=== PATIENT | female | born 1960 | race Caucasian/White ===

== ENCOUNTER → 2017-08-13 13:46 | Outpatient (CLI) | payer OTHER, MEDICAID, SELFPAY ==
--- NOTE | 2017-08-13 | DI.MRI.S_ITS ---
PROCEDURE: MR KNEE LT WO CON INDICATIONS: KNEE PAIN/SWELLING - LEFT TECHNIQUE: Noncontrast sagittal PD fast spin echo and T2 fast spin echo with fat saturation, sagittal 3-D FLASH with fat saturation; coronal T1 spin echo and PD fast spin echo with fat saturation, and axial PD fast spin echo with fat saturation through the knee. COMPARISON: None. FINDINGS: Image quality: Excellent. Menisci: Radial tearing of the free edge of the medial meniscal body and posterior horn is present. Linear high signal intensity traverses the posterior horn medial meniscus, demonstrating superior and inferior articular surface extension, indicating radial tearing. Medial extrusion of the medial meniscus is present. Amorphous high signal intensity within the lateral meniscal body and posterior horn is present, demonstrating inferior articular surface extension, indicating degenerative tearing. Cruciate ligaments: The anterior and posterior cruciate ligaments appear intact. Medial structures: The medial collateral ligament appears intact. The posterior oblique ligament, semimembranosus tendon insertions, oblique popliteal ligament, and meniscocapsular junction appear intact. Visualized portions of the pes anserinus tendons appear normal. No abnormal bursal fluid. Lateral structures: The lateral collateral ligament, long and short heads of the biceps femoris tendon appear intact. The popliteus tendon appears normal; the popliteofibular ligament appears intact. The posterosuperior and anteroinferior popliteomeniscal fascicles appear intact. The arcuate and fabellofibular ligaments appear intact, on either side of the lateral inferior geniculate artery. Iliotibial band appears normal. Anterior structures: The quadriceps and patellar tendons appear intact. Patellar alignment is normal. No femoral trochlear dysplasia or ventral trochlear prominence. No edema in the infrapatellar fat pad. Bones and cartilage: No bone marrow contusions or fractures. There is mild tricompartmental periarticular osteophyte formation. Moderate irregular articular cartilage loss overlies the medial and lateral patellar facets inferiorly. Severe diffuse articular cartilage loss overlies the weightbearing aspects of the medial femoral condyle and medial tibial plateau. Joint space: There is a small knee joint effusion. No Torres's cyst. Normal appearing synovial plicae are incidentally noted. IMPRESSION: 1. Medial and lateral meniscal tear in. 2. Medial and patellofemoral compartment cartilage loss. 3. Small knee joint effusion. Dictated by: aSurav Currie M.D. on 08/13/2017 at 15:09 Approved by: Saurav Currie M.D. on 08/13/2017 at 15:12
== END ==
PROVIDERS: Visit Provider Nurse Practitioner Family
DX: S83.242A Other tear of medial meniscus, current injury, left knee, initial encounter (principal); S83.282A Other tear of lateral meniscus, current injury, left knee, initial encounter; M25.462 Effusion, left knee
CPT/HCPCS: 73721

== ENCOUNTER → 2021-01-17 15:03 | Outpatient (CLI) | payer OTHER, MEDICAID, SELFPAY ==
[2021-01-19 21:33] LABS: Bacteria Urine Many (>30); Culture Indicated Urine Specimen Cultured; RBC Urine 10-30/HPF (0-5/HPF); WBC Urine 30-100/HPF (0-5/HPF)
== END ==
PROVIDERS: PCP Physician Assistant; Referring Provider Physician Assistant; Visit Provider Physician Assistant
DX: N39.0 Urinary tract infection, site not specified (principal)
CPT/HCPCS: 81002; 81015; 87077; 87086; 87186

== ENCOUNTER → 2021-02-02 11:58 | Outpatient (CLI) | payer OTHER, MEDICAID, SELFPAY ==
[2021-02-02 19:39] LABS: Alanine Aminotransferase 78 IU/L (<35); Albumin 4.1 g/dL (3.5-5.0); Albumin Globulin Ratio 1.3 (1.0-2.8); Alkaline Phosphatase 94 U/L (38-126); Aspartate Aminotransferase 68 IU/L (14-36); BUN Creatinine Ratio 9.8 (6-22); Bilirubin Total 0.5 mg/dL (0.2-1.3); Blood Urea Nitrogen 6 mg/dL (7-17); Calcium 9.3 mg/dL (8.4-10.2); Carbon Dioxide 31 mmol/L (22-32); Chloride 102 mmol/L (98-107); Cholesterol 207 mg/dL (140-199); Estimated Glomerular Filt Rate > 60.0 mL/min (>60); Globulin 3.1 g/dL (1.7-4.1); Glucose 102 mg/dL (70-100); HDL Cholesterol 59 mg/dL (40-60); HEMOLYSIS < 15 (0-50); LDL Cholesterol Calculated 118 mg/dL (<100); Potassium 4.4 mmol/L (3.4-5.1); Sodium 140 mmol/L (137-145); Total Protein 7.2 g/dL (6.3-8.2); Triglycerides 148 mg/dL (35-150)
[2021-02-02 19:46] LABS: Add Manual Diff / Slide Review NO; Basophils Absolute Auto 100 /uL (0-100); Basophils Percent Auto 0.9 % (0-2); Eosinophils Absolute Auto 200 /uL (0-450); Eosinophils Percent Auto 3.7 % (2-4); Hematocrit 40.4 % (36-46); Hemoglobin 13.5 g/dL (12.0-16.0); Lymphocytes Absolute Auto 2300 /uL (1100-4500); Lymphocytes Percent Auto 37.3 % (25-40); Mean Corpuscular HGB Conc 33.3 % (30-36); Mean Corpuscular Hemoglobin 29.8 PG (26-34); Mean Corpuscular Volume 89.2 fL (80-100); Monocytes Absolute Auto 500 /uL (0-900); Monocytes Percent Auto 8.7 % (3-14); Neutrophils Absolute Auto 3000 /uL (1500-7000); Neutrophils Percent Auto 49.4 % (50-75); Platelet Count 259 X10^3/uL (150-400); Red Blood Cell Count 4.53 X10^6/uL (4.0-5.2); Red Cell Distribution Width 14.4 % (11.6-14.8)
[2021-02-02 19:51] LABS: Hemoglobin A1C% w Est Avg Glu 5.9 % (4.0-6.0)
== END ==
PROVIDERS: PCP Physician Assistant; Visit Provider Physician Assistant
DX: R74.01 Elevation of levels of liver transaminase levels (principal)
CPT/HCPCS: 80053; 80061; 81002; 83036; 85025

== ENCOUNTER → 2021-12-14 11:18 | Outpatient (CLI) | payer OTHER, MEDICAID, SELFPAY ==
[2021-12-15 04:43] LABS: Alanine Aminotransferase 65 IU/L (<35); Albumin 3.9 g/dL (3.5-5.0); Albumin Globulin Ratio 1.3 (1.0-2.8); Alkaline Phosphatase 87 U/L (38-126); Aspartate Aminotransferase 47 IU/L (14-36); BUN Creatinine Ratio 17.5 (6-22); Bilirubin Total 0.4 mg/dL (0.2-1.3); Blood Urea Nitrogen 11 mg/dL (7-17); Carbon Dioxide 31 mmol/L (22-32); Chloride 102 mmol/L (98-107); Estimated Glomerular Filt Rate > 60 mL/min (>60); Globulin 3.1 g/dL (1.7-4.1); Glucose 107 mg/dL (70-100); HEMOLYSIS < 15 (0-50); Potassium 4.2 mmol/L (3.4-5.1); Sodium 139 mmol/L (137-145)
[2021-12-15 05:12] LABS: TSH w/ Reflex to FT4 2.12 uIU/mL (0.47-4.68)
[2021-12-20 08:57] LABS: Candida species Negative; Trichomoas vaginalis Negative
== END ==
PROVIDERS: PCP Physician Assistant; Visit Provider Physician Assistant
DX: R63.5 Abnormal weight gain (principal); R74.01 Elevation of levels of liver transaminase levels; B97.7 Papillomavirus as the cause of diseases classified elsewhere; N89.8 Other specified noninflammatory disorders of vagina; Z01.419 Encounter for gynecological examination (general) (routine) without abnormal findings
CPT/HCPCS: 80053; 84443; 87480; 87510; 87660

== ENCOUNTER → 2022-02-07 14:41 | Outpatient (CLI) | payer OTHER, MEDICAID, SELFPAY ==
[2022-02-09 14:44] LABS: Candida species Negative (Negative); Gardnerella vaginalis Negative (Negative); Trichomoas vaginalis Negative (Negative)
== END ==
PROVIDERS: PCP Physician Assistant; Visit Provider Physician Assistant
DX: R82.90 Unspecified abnormal findings in urine (principal)
CPT/HCPCS: 81002; 87480; 87510; 87660

== ENCOUNTER → 2022-02-08 12:32 | Outpatient (CLI) | payer OTHER, MEDICAID, SELFPAY ==
--- NOTE | 2022-02-08 12:33 | DI.MG.S_ITS ---
BILATERAL DIGITAL SCREENING MAMMOGRAM 3D/2D WITH CAD: 02/08/2022 CLINICAL: Routine screening. No prior exams were available for comparison. There are scattered areas of fibroglandular density in both breasts (category b / 25%-50% glandular tissue). Current study was also evaluated with a Computer Aided Detection (CAD) system. No significant masses, calcifications, or other findings are seen in either breast. IMPRESSION: NEGATIVE There is no mammographic evidence of malignancy. A 1 year screening mammogram is recommended. Based on the Tyrer Cuzick model (a risk assessment model) the patient's lifetime risk is 4.9% and her 10 year risk is 1.9%. According to the ACR, ACS, and NCCN guidelines, an annual breast MRI exam along with mammogram is recommended if the patient's lifetime risk is 20% or greater. This exam was interpreted at Station ID: [id number]. NOTE: For mammograms, a report in lay terms will be sent to the patient. Approximately 15% of breast malignancies will not be visualized mammographically. In the management of a palpable breast mass, a negative mammogram must not discourage biopsy of a clinically suspicious lesion. Electronically Signed By: Zach liao/juan j:02/08/2022 14:44:46 letter sent: Normal Exam ACR BI-RADS Category 1: Negative [id number]
== END ==
PROVIDERS: PCP Physician Assistant; Referring Provider Physician Assistant; Visit Provider Physician Assistant
DX: Z12.31 Encounter for screening mammogram for malignant neoplasm of breast (principal)
CPT/HCPCS: 77063; 77067

== ENCOUNTER 2022-03-22 11:42 | Inpatient (IN) | payer OTHER, MEDICAID, SELFPAY ==
[2022-03-22] VITALS (24 sets, daily range): BP systolic 114–176; BP diastolic 55–96; PULSE 96–112; RESP 19–30; TEMP 35.8–36.6; O2SAT 90–96; BMI 46.5
--- NOTE | 2022-03-22 11:59 | ED_ITS ---
HPI - SOB/Dyspnea General Chief Complaint: Shortness of Breath/Dyspnea Stated Complaint: Pneumonia Time Seen by Provider: 03/22/22 11:43 Source: patient, EMS (airlift) and other (Dr. Jeter) Mode of arrival: EMS (airlift) Limitations: no limitations History of Present Illness HPI Narrative: This is a 61-year-old female with history of asthma on albuterol inhaler patient did recently restart her fluticasone inhaler. Patient states she is felt ill for about 11 days, she started with cough, chest congestion, denies any fevers, no nasal congestion. She states productive sputum that has been thin, clear yellow in coloration, she is had sort of an epigastric chest discomfort that started overnight as well as some left-sided muscle aches that she describes being in her left arm and neck. Patient states she did not really have myalgias elsewhere. She feels short of breath. Patient denies any nausea or vomiting. She denies any diarrhea or constipation. No black or bloody stools. No dysuria urgency or frequency. No new swelling in her extremities. She states she is been drinking plenty of fluids. She denies other medical history, she states her inhalers are her only medications and she just restarted the fluticasone. She her granddaughter has had a recent upper respiratory infection at the same time. She denies tobacco use, no alcohol, no illicit. She lives on [facility] and saw Dr. Jeter in the office today had a chest x-ray and was sent over via airlift for tachycardia, tachypnea and O2 sat at the 90-91% range. She did have a DuoNeb she states it was not very helpful. She has not had any other interventions prior to arrival. Patient was transported via ER lift, they noted slight tachycardia 100-107 range, O2 was 90-91% on room air and was placed on 2 L brought her to 96%. Related Data Previous Rx's Medication Instructions Recorded albuterol sulfate 90 mcg/actuation 1 inh inhalation Q4-6H PRN 12/05/21 breath activated powder inhaler shortness of breath or wheezing #1 ea fluticasone propionate 110 2 puff inhalation BID #12 grams 12/05/21 mcg/actuation HFA aerosol inhaler (Flovent HFA) Allergies Allergy/AdvReac Type Severity Reaction Status Date / Time No Known Drug Allergies Allergy Verified 02/07/22 08:18 Review of Systems Review of Systems ROS Unobtainable: All systems reviewed & are unremarkable except as noted in HPI and below Patient History Medical History Abnormal Pap smear of cervix Acute meniscal tear of left knee Acute pain of left knee Breast cancer screening Candidal skin infection Cataracts, bilateral (~2011) MORIS I (cervical intraepithelial neoplasia I) MORIS II (cervical intraepithelial neoplasia II) Dysplasia of cervix, low grade (MORIS 1) Elevated ALT measurement Encounter for surveillance of abnormal nevi H/O vaginal delivery Hearing loss Pain and swelling of left knee Pap smear of cervix with ASCUS, cannot exclude HGSIL Rash of face Rosacea, unspecified Screening for cervical cancer Screening, lipid Skin cancer screening Tinnitus of left ear Urinary frequency Vaginal discharge Weight gain Well woman exam Surgical History Anesthesia History of cholecystectomy (~2009) Social History household members: family Smoking Status: Never smoker alcohol intake: never Smoking Status: Never smoker Exam Narrative Exam Narrative: GEN: well nourished, well appearing female, alert and oriented x 3, patient appears to be in mild distress. Patient is satting 92% on room air after being removed from airlifts oxygen. HEENT: Atraumatic, pupils are equal round reactive to light, extraocular movements are intact, nares are clear. HEART: Slightly tachycardic 100-105 range, Regular rate and rhythm without murmur, clicks, rubs. pulses are equal in upper and lower extremities, no JVD. No swelling bilateral lower extremities. LUNGS:Lungs have mild wheeze in the right lower lobe, no rales, no crackles, patient has recti in upper and lower bilaterally, slight tachypnea speaks in full sentences. No accessory muscle use. chest moves symmetrically ABD:bowel sounds normal, soft, non-tender, no guarding, rebound, rigidity, no masses noted, no hepatosplenomegaly :No CVA tenderness MSCL: Non-tender, no muscle atrophy, muscles strength 5/5 upper and lower extremities, full range of motion, normal gait NEURO:CN 2-12 intact, sensation normal SKIN: No rash, erythema or other skin changes. Initial Vital Signs Initial Vital Signs: Vital Signs Pulse Rate 107 H 03/22/22 11:50 Pulse Oximetry 92 03/22/22 11:50 Oxygen Delivery Method 03/22/22 11:50 Scores CURB-65 Confusion: No BUN >19mg/dL (>7mmol/L): No Respiratory rate greater or equal to 30: Yes SBP <90mmHg or DBP less or equal to 60mmHg: No Age 65 or Older: No CURB-65 Total: 1 Score 0-1 Outpatient care, Score 2 Inpt vs. Obs, Score 3 or over Inpt admit with ICU for score of 4-5 Course Orders Ordered: Acetaminophen (Acetaminophen 325 Mg Tablet) 650 mg PO Q6H PRN PRN Reason: Fever/Mild Pain (1-3) Last Admin: 03/23/22 17:37 Dose: 650 mg Documented By: Admin: 03/23/22 09:31 Dose: 650 mg Documented By: Admin: 03/22/22 20:12 Dose: 650 mg Documented By: LAKEISHA Albuterol (Albuterol 2.5 Mg/3 Ml Neb (Adult)) 2.5 mg INH [id number] PRN PRN Reason: Wheezing Budesonide (Budesonide 0.5 Mg/2 Ml Neb) 0.5 mg INH RTBID GRACE Last Admin: 03/24/22 08:25 Dose: 0.5 mg Documented By: Admin: 03/23/22 21:28 Dose: 0.5 mg Documented By: Admin: 03/23/22 09:53 Dose: 0.5 mg Documented By: CHONG Cefdinir (Cefdinir 300 Mg Capsule) 300 mg PO BID [facility] Stop: 03/27/22 09:01 Last Admin: 03/24/22 09:13 Dose: 300 mg Documented By: Admin: 03/23/22 20:51 Dose: 300 mg Documented By: Admin: 03/23/22 09:31 Dose: 300 mg Documented By: YOLA Cyclobenzaprine HCl (Cyclobenzaprine 10 Mg Tablet) 10 mg PO TID PRN PRN Reason: muscle spasm Last Admin: 03/24/22 16:55 Dose: 10 mg Documented By: KERA Dextrose (Dextrose 50 % In Water 25 Gm/50 Ml Syringe) 25 gm IV PRN PRN PRN Reason: Hypoglycemia Doxycycline Hyclate (Doxycycline Hyclate 100 Mg Tablet) 100 mg PO BID [facility] Stop: 03/27/22 09:01 Last Admin: 03/24/22 09:08 Dose: 100 mg Documented By: Admin: 03/23/22 20:51 Dose: 100 mg Documented By: Admin: 03/23/22 09:31 Dose: 100 mg Documented By: YOLA Enoxaparin Sodium (Enoxaparin 40 Mg/0.4 Ml Syringe) 40 mg SUBCUT BID [facility] Last Admin: 03/24/22 09:07 Dose: 40 mg Documented By: Admin: 03/23/22 20:50 Dose: 40 mg Documented By: LAKEISHA Guaifenesin (Guaifenesin Er 600 Mg Tab) 1,200 mg PO BID [facility] Last Admin: 03/24/22 09:08 Dose: 1,200 mg Documented By: Admin: 03/23/22 20:51 Dose: 1,200 mg Documented By: Admin: 03/23/22 13:24 Dose: 1,200 mg Documented By: YOLA Insulin Human Lispro (Insulin Lispro 100 Unit/Ml 3ml Vial) 0 unit SUBCUT [facility]; Protocol Last Admin: 03/24/22 16:50 Dose: 2 unit Documented By: KERA Co-signed By: NAREN Admin: 03/24/22 12:43 Dose: 2 unit Documented By: KERA Co-signed By: DESHAWN Admin: 03/24/22 09:02 Dose: 2 unit Documented By: KERA Co-signed By: REJI Admin: 03/23/22 22:17 Dose: 2 unit Documented By: LAKEISHA Co-signed By: SOLIS Admin: 03/23/22 17:32 Dose: 3 unit Documented By: YOLA Co-signed By: BRISEYDA Admin: 03/23/22 13:31 Dose: 3 unit Documented By: YOLA Co-signed By: HENRI Lidocaine (Lidocaine Patch 1 Each Adh..Patch) 1 each TOP DAILY [facility] Last Admin: 03/23/22 20:51 Dose: 1 each Documented By: Admin: 03/23/22 13:23 Dose: 1 each Documented By: YOLA Lidocaine (Remove Lidocaine Patch) 1 each TOP BEDTIME [facility] Last Admin: 12/30/22 22:21 Dose: Not Given Documented By: LAKEISHA Lidocaine (Lidocaine Patch 1 Each Adh..Patch) 1 each TOP DAILY [facility] Last Admin: 03/24/22 12:15 Dose: Not Given Documented By: KERA Magnesium Hydroxide (Magnesium Hydroxide 30 Ml Udc) 30 ml PO DAILY PRN PRN Reason: Constipation Naloxone HCl (Naloxone 0.4 Mg/Ml Vial) 0.2 mg IV Q2MIN PRN PRN Reason: Opiate Reversal Oseltamivir Phosphate (Oseltamivir 75 Mg Capsule) 75 mg PO BID [facility] Stop: 03/27/22 09:01 Last Admin: 03/24/22 09:14 Dose: 75 mg Documented By: Admin: 03/23/22 20:51 Dose: 75 mg Documented By: Admin: 03/23/22 09:31 Dose: 75 mg Documented By: Admin: 03/22/22 20:12 Dose: 75 mg Documented By: LAKEISHA Oxycodone HCl (Oxycodone Ir 5 Mg Tablet) 5 mg PO Q4HR PRN PRN Reason: Pain, Moderate (4-6) Last Admin: 03/23/22 20:51 Dose: 5 mg Documented By: LAKEISHA Prednisone (Prednisone 20 Mg Tablet) 40 mg PO DAILY [facility] Sodium Chloride (Sodium Chloride 0.9% Flush) 10 ml IV PRN PRN PRN Reason: Flush Sodium Chloride (Sodium Chloride 0.9% Flush) 10 ml IV BID [facility] Last Admin: 03/24/22 09:14 Dose: 10 ml Documented By: Admin: 03/23/22 20:52 Dose: 10 ml Documented By: Admin: 03/23/22 09:35 Dose: 10 ml Documented By: Admin: 03/22/22 20:19 Dose: 10 ml Documented By: LAKEISHA Discontinued Medications Albuterol (Albuterol 2.5 Mg/3 Ml Neb (Adult)) 2.5 mg INH NOW ONE Stop: 03/22/22 13:54 Last Admin: 03/22/22 14:03 Dose: 2.5 mg Documented By: AMARILIS Albuterol (Albuterol 2.5 Mg/3 Ml Neb (Adult)) 2.5 mg INH [id number] [facility] Doxycycline Hyclate (Doxycycline Hyclate 100 Mg Tablet) 100 mg PO NOW ONE Stop: 03/22/22 16:15 Last Admin: 03/22/22 16:43 Dose: 100 mg Documented By: HO Enoxaparin Sodium (Enoxaparin 40 Mg/0.4 Ml Syringe) 40 mg SUBCUT DAILY [facility] Last Admin: 03/23/22 09:34 Dose: 40 mg Documented By: YOLA Furosemide (Furosemide 40 Mg/4 Ml Vial) 40 mg IV NOW ONE Stop: 03/22/22 17:38 Last Admin: 03/22/22 18:50 Dose: Not Given Documented By: MADELINE Ceftriaxone Sodium 2,000 mg/ (Sodium Chloride) 100 mls @ 200 mls/hr IV NOW ONE Stop: 03/22/22 12:10 Last Infusion: 03/22/22 16:05 Dose: 0 mls/hr Documented By: Admin: 03/22/22 15:15 Dose: 200 mls/hr Documented By: AT Sodium Chloride (Normal Saline 0.9%) 1,000 mls @ 1,000 mls/hr IV BOLUS ONE Stop: 03/22/22 16:08 Last Infusion: 03/22/22 16:38 Dose: 0 mls/hr Documented By: Admin: 03/22/22 15:16 Dose: 1,000 mls/hr Documented By: AT Methylprednisolone (Methylprednisolone 125 Mg/2 Ml Vial) 125 mg IV NOW ONE Stop: 03/22/22 12:05 Last Admin: 03/22/22 15:15 Dose: 125 mg Documented By: AT Methylprednisolone (Methylprednisolone 40 Mg/Ml Vial) 40 mg IV Q8HR [facility] Last Admin: 03/24/22 07:47 Dose: 40 mg Documented By: Admin: 03/23/22 22:17 Dose: 40 mg Documented By: Admin: 03/23/22 13:24 Dose: 40 mg Documented By: YOLA Methylprednisolone (Methylprednisolone 40 Mg/Ml Vial) 40 mg IV Q8H [facility] Last Admin: 03/24/22 16:30 Dose: 40 mg Documented By: KERA Morphine Sulfate (Morphine 4 Mg/Ml Inj) 4 mg IV NOW ONE Stop: 03/22/22 16:15 Last Admin: 03/22/22 16:43 Dose: 4 mg Documented By: HO Non-Formulary Medication (Fluticasone Propionate [Flovent Hfa]) 2 puff INHALATION BID [facility] Last Admin: 03/23/22 07:00 Dose: Not Given Documented By: YOLA Pantoprazole Sodium (Pantoprazole 40 Mg Packet) 20 mg PO DAILY@0700 [facility] Last Admin: 03/23/22 07:00 Dose: Not Given Documented By: YOLA Pantoprazole Sodium (Pantoprazole Dr 20 Mg Tablet) 20 mg PO DAILY@0700 [facility] Last Admin: 03/24/22 07:47 Dose: 20 mg Documented By: Admin: 03/23/22 09:45 Dose: 20 mg Documented By: YOLA Prednisone (Prednisone 20 Mg Tablet) 40 mg PO DAILY [facility] Prednisone (Prednisone 20 Mg Tablet) 60 mg PO DAILY [facility] Last Admin: 03/23/22 09:31 Dose: 60 mg Documented By: Admin: 03/22/22 23:00 Dose: 60 mg Documented By: LAKEISHA Prednisone (Prednisone 20 Mg Tablet) 60 mg PO DAILY [facility] Consultations Consultation #1: Dr. Nieves, would be willing to keep for observation. Patient continues to be slightly tachycardic slightly tachypneic, still slight pursed lip breathing she is been maintaining her O2 sats but does have what appears to be influenza positive, likely pneumonia although possibly could have a masslike consolidation with enlarged lymph nodes. He accepts for observation patient has received Rocephin, doxycycline, fluids, Solu-Medrol he does ask that we add Tamiflu accepts patient. Time: 17:24 Vital Signs Vital signs: Vital Signs - 8 hr 03/22/22 11:55 03/22/22 11:50 03/22/22 11:52 Temperature 97.8 F Pulse Rate 105 H 107 H 107 H Respiratory Rate 20 Blood Pressure 170/90 H Pulse Oximetry 92 92 92 Oxygen Delivery Method Room Air Room Air Room Air 03/22/22 11:52 03/22/22 12:00 03/22/22 12:24 Temperature Pulse Rate 104 H 103 H Respiratory Rate 20 Blood Pressure 170/90 H Pulse Oximetry 93 92 Oxygen Delivery Method Room Air Room Air 03/22/22 12:24 03/22/22 12:30 03/22/22 13:47 Temperature Pulse Rate 102 H 112 H Respiratory Rate 22 30 H Blood Pressure 123/78 Pulse Oximetry 93 93 Oxygen Delivery Method Room Air 03/22/22 13:00 03/22/22 13:27 03/22/22 13:27 Temperature Pulse Rate 101 H 101 H Respiratory Rate 20 20 Blood Pressure 144/81 H Pulse Oximetry 92 94 Oxygen Delivery Method Room Air Room Air 03/22/22 13:30 03/22/22 13:30 03/22/22 13:45 Temperature Pulse Rate 103 H 107 H Respiratory Rate 22 28 H Blood Pressure 147/81 H Pulse Oximetry 94 92 Oxygen Delivery Method Room Air Room Air 03/22/22 13:45 03/22/22 14:03 03/22/22 14:00 Temperature Pulse Rate 104 H Respiratory Rate 26 H Blood Pressure 176/78 H 169/75 H Pulse Oximetry 95 Oxygen Delivery Method 03/22/22 14:00 03/22/22 14:30 03/22/22 14:31 Temperature Pulse Rate 104 H 103 H Respiratory Rate 22 24 Blood Pressure 126/74 Pulse Oximetry 96 92 Oxygen Delivery Method Room Air Room Air 03/22/22 14:31 03/22/22 15:13 03/22/22 15:30 Temperature Pulse Rate 102 H 97 H 105 H Respiratory Rate 26 H Blood Pressure Pulse Oximetry 93 93 95 Oxygen Delivery Method Room Air Room Air Room Air 03/22/22 15:35 03/22/22 15:35 03/22/22 16:00 Temperature Pulse Rate 109 H Respiratory Rate Blood Pressure 126/66 140/73 Pulse Oximetry 93 Oxygen Delivery Method Room Air 03/22/22 16:00 Temperature Pulse Rate 102 H Respiratory Rate 22 Blood Pressure Pulse Oximetry 94 Oxygen Delivery Method Room Air MDM - SOB/Dyspnea Lab Data Result diagrams: 03/24/22 04:40 03/24/22 04:40 Labs: Lab Results 03/22/22 03/22/22 03/22/22 Range/Units 13:08 13:08 13:08 WBC 13.8 H (4.5-11.0) X10^3/uL RBC 4.39 (4.0-5.2) X10^6/uL Hgb 12.9 (12.0-16.0) g/dL Hct 38.5 (36-46) % MCV 87.6 (80-100) fL MCH 29.4 (26-34) PG MCHC 33.6 (30-36) % RDW 14.6 (11.6-14.8) % Plt Count 206 (150-400) X10^3/uL Neut % (Auto) 82.9 H (50-75) % Lymph % (Auto) 9.4 L (25-40) % [place] % (Auto) 7.1 (3-14) % Eos % (Auto) 0.1 L (2-4) % Baso % (Auto) 0.5 (0-2) % Neut # (Auto) 25225 H (6452-8452) /uL Lymph # (Auto) 1300 (7499-8044) /uL [place] # (Auto) 1000 H (0-900) /uL Eos # (Auto) 0 (0-450) /uL Baso # (Auto) 100 (0-100) /uL D-Dimer (<500) ng/ml Sodium 136 L (137-145) mmol/L Potassium 3.9 (3.4-5.1) mmol/L Chloride 99 (98-107) mmol/L Carbon Dioxide 28 (22-32) mmol/L BUN 6 L (7-17) mg/dL Creatinine 0.57 (0.52-1.04) mg/dL Estimated GFR > 60 (>60) mL/min BUN/Creatinine Ratio 10.5 (6-22) Glucose 143 H (70-100) mg/dL Lactate (0.7-2.1) mmol/L Calcium 8.3 L (8.4-10.2) mg/dL Total Bilirubin 0.8 (0.2-1.3) mg/dL AST 45 H (14-36) IU/L ALT 71 H (<35) IU/L Alkaline Phosphatase 108 (38-126) U/L Total Creatine Kinase 84 (30-135) U/L CK-MB (CK-2) TNP CK-MB (CK-2) Rel Index TNP Troponin I < 0.012 (0.01-0.034) ng/mL NT-Pro-B Natriuret Pep 59 (<125) pg/mL Total Protein 7.7 (6.3-8.2) g/dL Albumin 4.1 (3.5-5.0) g/dL Globulin 3.6 (1.7-4.1) g/dL Albumin/Globulin Ratio 1.1 (1.0-2.8) Lipase 63 (23-300) U/L SARS-CoV-2 (PCR) (Negative) Influenza A (RT-PCR) (NEGATIVE) Influenza B (RT-PCR) (NEGATIVE) RSV (PCR) (Negative) 03/22/22 03/22/22 03/22/22 Range/Units 13:08 13:08 13:44 WBC (4.5-11.0) X10^3/uL RBC (4.0-5.2) X10^6/uL Hgb (12.0-16.0) g/dL Hct (36-46) % MCV (80-100) fL MCH (26-34) PG MCHC (30-36) % RDW (11.6-14.8) % Plt Count (150-400) X10^3/uL Neut % (Auto) (50-75) % Lymph % (Auto) (25-40) % [place] % (Auto) (3-14) % Eos % (Auto) (2-4) % Baso % (Auto) (0-2) % Neut # (Auto) (4817-6668) /uL Lymph # (Auto) (0278-2987) /uL [place] # (Auto) (0-900) /uL Eos # (Auto) (0-450) /uL Baso # (Auto) (0-100) /uL D-Dimer 1132 H (<500) ng/ml Sodium (137-145) mmol/L Potassium (3.4-5.1) mmol/L Chloride (98-107) mmol/L Carbon Dioxide (22-32) mmol/L BUN (7-17) mg/dL Creatinine (0.52-1.04) mg/dL Estimated GFR (>60) mL/min BUN/Creatinine Ratio (6-22) Glucose (70-100) mg/dL Lactate 1.6 (0.7-2.1) mmol/L Calcium (8.4-10.2) mg/dL Total Bilirubin (0.2-1.3) mg/dL AST (14-36) IU/L ALT (<35) IU/L Alkaline Phosphatase (38-126) U/L Total Creatine Kinase (30-135) U/L CK-MB (CK-2) CK-MB (CK-2) Rel Index Troponin I (0.01-0.034) ng/mL NT-Pro-B Natriuret Pep (<125) pg/mL Total Protein (6.3-8.2) g/dL Albumin (3.5-5.0) g/dL Globulin (1.7-4.1) g/dL Albumin/Globulin Ratio (1.0-2.8) Lipase (23-300) U/L SARS-CoV-2 (PCR) Negative (Negative) Influenza A (RT-PCR) Flu a positive H (NEGATIVE) Influenza B (RT-PCR) Flu b negative (NEGATIVE) RSV (PCR) Negative (Negative) Imaging Data Chest x-ray: Radiologist's Impression: [place] [address] XRay Report Signed Patient: Donna Alex MR#: [id number] : 1960 Acct:[id number] Age/Sex: 61 / F Date of Service: 03/22/22 Loc: [facility] Accession Number: [id number] ?? Procedure: XR chest 2V Ordering Provider: Sen Jeter MD PROCEDURE:? XR CHEST 2V ? INDICATIONS:? SOB cough ? TECHNIQUE:? 2 views of the chest were acquired.? ? COMPARISON:? None. ? FINDINGS:? ? Surgical changes and devices:? None.? ? Lungs and pleura:? Left lower lobe airspace opacities.? Right lung appears clear.? No pleural effusions or pneumothorax.? ? Mediastinum:? Mediastinal contours are normal.? Heart size is normal.? ? Bones and chest wall:? No suspicious bony abnormalities.? Soft tissues appear unremarkable.? ? IMPRESSION:? Left lower lobe airspace disease/pneumonia. ? Recommend follow up chest radiograph 4-6 weeks after treatment to document resol ution of findings and/or return to baseline examination. ? ? ? Dictated by: Zach Candelario M.D. on 03/22/2022 at 13:07 ? ? Approved by: Zach Candelario M.D. on 03/22/2022 at 13:08?? CT scan - chest: Radiologist's Impression: Close Chest CTA (Signed) Bill Friedman - 03/22/22 Launch?Image [address] [address] [address] Scan Report Signed Patient: Donna Alex MR#: [id number] : 1960 Acct:[id number] Age/Sex: 61 / F Date of Service: 03/22/22 Loc: ED Accession Number: [id number] ?? Procedure: CT angio chest PE protocol Ordering Provider: Rachana Chavez D.O. PROCEDURE:? CT ANGIO CHEST PE PROTOCOL ? INDICATIONS:? sob, ? TECHNIQUE:? After the administration of intravenous contrast, 2 mm thick sections acquired from the pulmonary apices to the posterior costophrenic angles.? 3-dimensional maximum intensity projection (MIP) coronal and sagittal reformats were then acquired through the thorax.? For radiation dose reduction, the following was used:? automated exposure control, adjustment of mA and/or kV according to patient size.? ? COMPARISON:? None. ? FINDINGS:? Image quality:? Excellent.? ? Pulmonary arteries:? Pulmonary arteries are normal in size, and demonstrate no intraluminal filling defects to suggest central pulmonary embolism.? ? Lungs and pleura:? There is either a masslike infiltrate or a mass in the left lower lobe on image 146/7 measuring 2.7 x 3.0 cm.? More inferiorly in the right lobe there are 2 other focal areas which may potentially represent mass or masslike infiltrate.? Reference image 175/7.? 1 of these areas measures 2.7 cm and the other measures 1.6 cm.? This may all potentially represent pneumonia.? Malignancy is not excluded. .? No pleural effusions or pneumothorax.? Central and peripheral airways are patent.? ? Mediastinum:? Heart size is normal, without pericardial effusion.? There is a 2.2 x 2.3 cm left hilar lymph node on image 67/6.? There is shotty prevascular adenopathy image 47/6.? There is a prominent subcarinal lymph node image 65/6 which measures approximately 3.1 x 1.6 cm.? Thoracic aorta is normal in caliber and enhancement.? Esophagus is normal in caliber, without hiatal hernia.? ? Bones and chest wall:? No suspicious bony lesions.? Ribs and thoracic spine appear intact throughout.? Thyroid gland is grossly unremarkable.? No axillary or supraclavicular adenopathy.? ? Abdomen:? Visualized upper abdominal solid organs appear normal in the early arterial phase of enhancement.? ? IMPRESSION:? ? 1. No evidence acute pulmonary emboli. ? 2. There is mediastinal adenopathy which is of uncertain significance, possibly reactive or possibly malignant in nature.? Findings include a 2.3 x 2.2 cm left hilar lymph node. ? 3. There is a process in the left lower lobe which may simply represent pneumonia where areas of consolidation have a masslike appearance, or may potentially represent malignancy. ? Comment:? Recommend repeat CT chest with contrast in 2-3 months, after treatment, to see whether not the masslike densities in the left lower lobe resolved.? ? ? Dictated by: Bill Friedman M.D. on 03/22/2022 at 15:10 ? ? Approved by: Bill Friedman M.D. on 03/22/2022 at 15:36?? ECG Data Attestation: I personally reviewed and interpreted this ECG as follows: Interpretation: Sinus tachycardia rate of 106 ND 160 QRS 84 and QTC 438. No acute ST elevation or depression noted. MDM Narrative Medical decision making narrative: This is a 61-year-old female with history of asthma, who test influenza positive, patient is slightly tachypneic, tachycardic with O2 92-90% on room air. Patient does appear to have pneumonia with possible underlying mass but more suspect bacterial pneumonia, curb 65 score does 1 but based on patient's findings spoke with hospitalist who accepts for observation. Discussed with patient she is open to this. She has been covered with antibiotics, Tamiflu was added on despite being 10-11 days within symptoms. Discharge Plan Departure Patient Disposition: Admitted as Observation Clinical Impression: Influenza A, Pneumonia Admit Date/Time: 03/22/22 17:22 Admit Provider: Jaswinder Nieves
[2022-03-22 13:32] LABS: Add Manual Diff / Slide Review NO; Basophils Absolute Auto 100 /uL (0-100); Basophils Percent Auto 0.5 % (0-2); Eosinophils Absolute Auto 0 /uL (0-450); Eosinophils Percent Auto 0.1 % (2-4); Hematocrit 38.5 % (36-46); Hemoglobin 12.9 g/dL (12.0-16.0); Lymphocytes Absolute Auto 1300 /uL (1100-4500); Lymphocytes Percent Auto 9.4 % (25-40); Mean Corpuscular HGB Conc 33.6 % (30-36); Mean Corpuscular Hemoglobin 29.4 PG (26-34); Mean Corpuscular Volume 87.6 fL (80-100); Monocytes Absolute Auto 1000 /uL (0-900); Monocytes Percent Auto 7.1 % (3-14); Neutrophils Absolute Auto 11400 /uL (1500-7000); Neutrophils Percent Auto 82.9 % (50-75); Platelet Count 206 X10^3/uL (150-400); Red Blood Cell Count 4.39 X10^6/uL (4.0-5.2); Red Cell Distribution Width 14.6 % (11.6-14.8); White Blood Cell Count 13.8 X10^3/uL (4.5-11.0)
[2022-03-22 13:37] LABS: D Dimer 1132 ng/ml (<500)
[2022-03-22 13:41] LABS: Lactate (Lactic Acid) 1.6 mmol/L (0.7-2.1)
[2022-03-22 13:44] LABS: Alanine Aminotransferase 71 IU/L (<35); Albumin 4.1 g/dL (3.5-5.0); Albumin Globulin Ratio 1.1 (1.0-2.8); Alkaline Phosphatase 108 U/L (38-126); Aspartate Aminotransferase 45 IU/L (14-36); BUN Creatinine Ratio 10.5 (6-22); Bilirubin Total 0.8 mg/dL (0.2-1.3); Blood Urea Nitrogen 6 mg/dL (7-17); Calcium 8.3 mg/dL (8.4-10.2); Carbon Dioxide 28 mmol/L (22-32); Chloride 99 mmol/L (98-107); Creatine Kinase 84 U/L (30-135); Estimated Glomerular Filt Rate > 60 mL/min (>60); Globulin 3.6 g/dL (1.7-4.1); Glucose 143 mg/dL (70-100); HEMOLYSIS < 15 (0-50); Lipase 63 U/L (23-300); Potassium 3.9 mmol/L (3.4-5.1); Sodium 136 mmol/L (137-145); Total Protein 7.7 g/dL (6.3-8.2)
[2022-03-22 13:51] LABS: NT-proBNP (BNP-Adult 18+) 59 pg/mL (<125)
--- NOTE | 2022-03-22 13:52 | DI.CT.S_ITS ---
PROCEDURE: CT ANGIO CHEST PE PROTOCOL INDICATIONS: sob, TECHNIQUE: After the administration of intravenous contrast, 2 mm thick sections acquired from the pulmonary apices to the posterior costophrenic angles. 3-dimensional maximum intensity projection (MIP) coronal and sagittal reformats were then acquired through the thorax. For radiation dose reduction, the following was used: automated exposure control, adjustment of mA and/or kV according to patient size. COMPARISON: None. FINDINGS: Image quality: Excellent. Pulmonary arteries: Pulmonary arteries are normal in size, and demonstrate no intraluminal filling defects to suggest central pulmonary embolism. Lungs and pleura: There is either a masslike infiltrate or a mass in the left lower lobe on image 146/7 measuring 2.7 x 3.0 cm. More inferiorly in the right lobe there are 2 other focal areas which may potentially represent mass or masslike infiltrate. Reference image 175/7. 1 of these areas measures 2.7 cm and the other measures 1.6 cm. This may all potentially represent pneumonia. Malignancy is not excluded. . No pleural effusions or pneumothorax. Central and peripheral airways are patent. Mediastinum: Heart size is normal, without pericardial effusion. There is a 2.2 x 2.3 cm left hilar lymph node on image 67/6. There is shotty prevascular adenopathy image 47/6. There is a prominent subcarinal lymph node image 65/6 which measures approximately 3.1 x 1.6 cm. Thoracic aorta is normal in caliber and enhancement. Esophagus is normal in caliber, without hiatal hernia. Bones and chest wall: No suspicious bony lesions. Ribs and thoracic spine appear intact throughout. Thyroid gland is grossly unremarkable. No axillary or supraclavicular adenopathy. Abdomen: Visualized upper abdominal solid organs appear normal in the early arterial phase of enhancement. IMPRESSION: 1. No evidence acute pulmonary emboli. 2. There is mediastinal adenopathy which is of uncertain significance, possibly reactive or possibly malignant in nature. Findings include a 2.3 x 2.2 cm left hilar lymph node. 3. There is a process in the left lower lobe which may simply represent pneumonia where areas of consolidation have a masslike appearance, or may potentially represent malignancy. Comment: Recommend repeat CT chest with contrast in 2-3 months, after treatment, to see whether not the masslike densities in the left lower lobe resolved. Dictated by: Bill Friedman M.D. on 03/22/2022 at 15:10 Approved by: Bill Friedman M.D. on 03/22/2022 at 15:36
[2022-03-22 13:53] LABS: Troponin I < 0.012 ng/mL (0.01-0.034)
[2022-03-22] MEDS: ALBUTEROL 2.5 MG/3 ML NEB (ADULT) INH (14:03)
--- NOTE | 2022-03-22 14:08 | RT ---
pt on room air and christian neb tx well. no distress noted
[2022-03-22 14:37] LABS: Influenza A - CEPHEID Flu A POSITIVE (NEGATIVE); Influenza B - CEPHEID Flu B NEGATIVE (NEGATIVE); Respiratory Syncytial Virus Negative (Negative)
[2022-03-22 14:49] LABS: COVID-19 CEPHEID 4-PLEX PCR Negative (Negative)
[2022-03-22] MEDS: methylPREDNISolone 125 MG/2 ML VIAL IV (15:15)
[2022-03-22] MEDS: cefTRIAXone 2,000 MG in SODIUM CHLORIDE 0.9% 100 ML 200 MG IV (15:15)
[2022-03-22] MEDS: SODIUM CHLORIDE 0.9% 1,000 ML 1000 ML IV (15:16)
[2022-03-22] MEDS: DOXYCYCLINE HYCLATE 100 MG TABLET PO (16:43)
[2022-03-22] MEDS: MORPHINE 4 MG/ML INJ IV (16:43)
[2022-03-22] MEDS: ACETAMINOPHEN 325 MG TABLET 650 MG PO (20:12)
[2022-03-22] MEDS: OSELTAMIVIR 75 MG CAPSULE PO (20:12)
[2022-03-22] MEDS: SODIUM CHLORIDE 0.9% FLUSH 10 ML IV (20:19)
--- NOTE | 2022-03-22 22:11 | P.HP_ITS ---
History of Present Illness History of Present Illness Date Patient Seen: 03/22/22 Chief complaint: Pneumonia Narrative: History obtained from ER note, patient, daughter at bedside: 61-year-old female with history of asthma on albuterol inhaler patient did recently restart her fluticasone inhaler. Patient states she is felt ill for about 11 days, she started with cough, chest congestion, denies any fevers, no nasal congestion. She states productive sputum that has been thin, clear yellow in coloration, she is had sort of an epigastric chest discomfort that started overnight as well as some left-sided muscle aches that she describes being in her left arm and neck. Patient states she did not really have myalgias elsewhere. She feels short of breath. Patient denies any nausea or vomiting. She denies any diarrhea or constipation. No black or bloody stools. No dysuria urgency or frequency. No new swelling in her extremities. She states she is been drinking plenty of fluids. She denies other medical history, she states her inhalers are her only medications and she just restarted the fluticasone. She her granddaughter has had a recent upper respiratory infection at the same time. She denies tobacco use, no alcohol, no illicit. She lives on [facility] and saw Dr. Jeter in the office today had a chest x-ray and was sent over via airlift for tachycardia, tachypnea and O2 sat at the 90-91% range. She did have a DuoNeb she states it was not very helpful. She has not had any other interventions prior to arrival. Patient was transported via Air lift, they n oted slight tachycardia 100-107 range, O2 was 90-91% on room air and was placed on 2 L brought her to 96%. When I saw the patient she is already on the medical floor, does seem to be comfortable after breathing treatments and steroids given in the ER. Patient and daughter able to confirm most of the details mentioned above. Patient does not look comfortable with I will distress and using accessory muscles with exertion. She does not have any other medical problems other than using inhalers. 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 Usually active at baseline. Patient History Medical History Abnormal Pap smear of cervix Acute meniscal tear of left knee Acute pain of left knee Breast cancer screening Candidal skin infection Cataracts, bilateral (~2011) MORIS I (cervical intraepithelial neoplasia I) MORIS II (cervical intraepithelial neoplasia II) Dysplasia of cervix, low grade (MORIS 1) Elevated ALT measurement Encounter for surveillance of abnormal nevi H/O vaginal delivery Hearing loss Pain and swelling of left knee Pap smear of cervix with ASCUS, cannot exclude HGSIL Rash of face Rosacea, unspecified Screening for cervical cancer Screening, lipid Skin cancer screening Tinnitus of left ear Urinary frequency Vaginal discharge Weight gain Well woman exam Surgical History Anesthesia History of cholecystectomy (~2009) Family & Social History Social History: Lives by herself, daughter is at bedside. Denies any smoking. No significant family history contributing to this illness. Safety & Behavioral: Feels Safe in Current Yes Environment Been Physically Hurt or No Threatened By a Person Tobacco & Substance use: Smoking Status Never smoker Substance Use Type does not use Meds Home Medications and Allergies Home Medications Medication Instructions Recorded Confirmed Type albuterol sulfate 90 mcg/actuation 1 inh inhalation Q4-6H PRN 12/05/21 03/22/22 Rx breath activated powder inhaler shortness of breath or wheezing #1 ea fluticasone propionate 110 2 puff inhalation BID #12 grams 12/05/21 03/22/22 Rx mcg/actuation HFA aerosol inhaler (Flovent HFA) Allergies Allergy/AdvReac Type Severity Reaction Status Date / Time No Known Drug Allergies Allergy Verified 02/07/22 08:18 Review of Systems Review of Systems Narrative: All other systems reviewed, negative other than as mentioned above in HPI. Exam Vital Signs (past 8 hours): - 03/22/22 14:30 03/22/22 14:31 03/22/22 14:31 Temperature Pulse Rate 103 H 102 H Respiratory Rate 24 26 H Blood Pressure 126/74 Pulse Oximetry 92 93 Oxygen Delivery Method Room Air Room Air Oxygen Flow Rate 03/22/22 15:13 03/22/22 15:30 03/22/22 15:35 Temperature Pulse Rate 97 H 105 H Respiratory Rate Blood Pressure 126/66 Pulse Oximetry 93 95 Oxygen Delivery Method Room Air Room Air Oxygen Flow Rate 03/22/22 15:35 03/22/22 16:00 03/22/22 16:00 Temperature Pulse Rate 109 H 102 H Respiratory Rate 22 Blood Pressure 140/73 Pulse Oximetry 93 94 Oxygen Delivery Method Room Air Room Air Oxygen Flow Rate 03/22/22 16:30 03/22/22 16:30 03/22/22 17:00 Temperature Pulse Rate 100 H Respiratory Rate 21 Blood Pressure 143/73 H 116/56 L Pulse Oximetry 91 Oxygen Delivery Method Room Air Oxygen Flow Rate 03/22/22 17:00 03/22/22 17:30 03/22/22 17:30 Temperature Pulse Rate 99 H 96 H Respiratory Rate 20 19 Blood Pressure 114/55 L Pulse Oximetry 92 92 Oxygen Delivery Method Room Air Room Air Oxygen Flow Rate 03/22/22 18:29 03/22/22 20:00 03/22/22 20:55 Temperature 96.4 F L Pulse Rate 104 H 104 H Respiratory Rate 20 20 Blood Pressure 146/96 H Pulse Oximetry 94 Oxygen Delivery Method Room Air Oxygen Flow Rate 2 03/22/22 20:00 03/22/22 20:00 Temperature Pulse Rate Respiratory Rate Blood Pressure Pulse Oximetry 90 L Oxygen Delivery Method Room Air Nasal Cannula Room Air Oxygen Flow Rate 0 Oxygen Delivery Method Room Air Oxygen Flow Rate 0 Narrative Exam Narrative: Does seem to be in mild distress because of the breathing difficulties using accessory muscles, overall comfortable. Wheeze noted bilateral lung desai. Constitutional, HEENT, chest, respiratory, cardiovascular, GI, skin, neuro, psych examination, negative. Objective Labs Result Diagrams: 03/22/22 13:08 03/22/22 13:08 Labs: Laboratory Results - last 24 hr 03/22/22 03/22/22 03/22/22 13:08 13:08 13:08 WBC 13.8 H RBC 4.39 Hgb 12.9 Hct 38.5 MCV 87.6 MCH 29.4 MCHC 33.6 RDW 14.6 Plt Count 206 Neut % (Auto) 82.9 H Lymph % (Auto) 9.4 L [place] % (Auto) 7.1 Eos % (Auto) 0.1 L Baso % (Auto) 0.5 Neut # (Auto) 48867 H Lymph # (Auto) 1300 [place] # (Auto) 1000 H Eos # (Auto) 0 Baso # (Auto) 100 D-Dimer Sodium 136 L Potassium 3.9 Chloride 99 Carbon Dioxide 28 BUN 6 L Creatinine 0.57 Estimated GFR > 60 BUN/Creatinine Ratio 10.5 Glucose 143 H Lactate Calcium 8.3 L Total Bilirubin 0.8 AST 45 H ALT 71 H Alkaline Phosphatase 108 Total Creatine Kinase 84 CK-MB (CK-2) TNP CK-MB (CK-2) Rel Index TNP Troponin I < 0.012 NT-Pro-B Natriuret Pep 59 Total Protein 7.7 Albumin 4.1 Globulin 3.6 Albumin/Globulin Ratio 1.1 Lipase 63 SARS-CoV-2 (PCR) Influenza A (RT-PCR) Influenza B (RT-PCR) RSV (PCR) 03/22/22 03/22/22 03/22/22 13:08 13:08 13:44 WBC RBC Hgb Hct MCV MCH MCHC RDW Plt Count Neut % (Auto) Lymph % (Auto) White % (Auto) Eos % (Auto) Baso % (Auto) Neut # (Auto) Lymph # (Auto) White # (Auto) Eos # (Auto) Baso # (Auto) D-Dimer 1132 H Sodium Potassium Chloride Carbon Dioxide BUN Creatinine Estimated GFR BUN/Creatinine Ratio Glucose Lactate 1.6 Calcium Total Bilirubin AST ALT Alkaline Phosphatase Total Creatine Kinase CK-MB (CK-2) CK-MB (CK-2) Rel Index Troponin I NT-Pro-B Natriuret Pep Total Protein Albumin Globulin Albumin/Globulin Ratio Lipase SARS-CoV-2 (PCR) Negative Influenza A (RT-PCR) Flu a positive H Influenza B (RT-PCR) Flu b negative RSV (PCR) Negative Assessment & Plan Assessment and plan (1) Influenza A: Status: Acute (2) Shortness of breath: Status: Acute (3) Pneumonia: Status: Acute Assessment & Plan narrative: Acute hypoxic respiratory failure secondary to asthma?exacerbation and influe nza pneumonia -possible bacterial pneumonia, left lower lobe, community-acquired -treating patient for both viral and bacterial pneumonia with the Tamiflu and antibiotics. Breathing treatments as needed. Steroid IV given, transition to p.o. 60 mg prednisone for additional 5 doses. If clinically improving, possible discharge in the morning. Mediastinal adenopathy - include a 2.3 x 2.2 cm left hilar lymph node -unclear etiology -needs follow up in 2 months with a contrast chest CT -please arrange her the time of the discharge Left lower lobe opacity -concern for masslike appearance or could be pneumonia - once clinically improving, repeat and follow up DVT and GI prophylaxis reviewed. SCDs for DVT prophylaxis, ppi for GI prophylaxis. Patient is full code. Care plan extensively discussed with the patient and her daughter at bedside, answered all questions. Outpatient follow-up strongly recommended on further evaluation of adenopathy and left lower lobe mass that is noticed on CT scan. Time Spent With Patient Critical Care time: I spent a total of [] minutes of critical care time on this patient's care today; this time is exclusive of procedural time.
[2022-03-22] MEDS: predniSONE 20 MG TABLET 60 MG PO (23:00)
[2022-03-23] VITALS (10 sets, daily range): BP systolic 115–139; BP diastolic 72–92; PULSE 72–95; RESP 16–20; TEMP 35.8–36.2; O2SAT 91–97
[2022-03-23 04:45] LABS: Add Manual Diff / Slide Review NO; Basophils Absolute Auto 100 /uL (0-100); Basophils Percent Auto 0.5 % (0-2); Eosinophils Absolute Auto 0 /uL (0-450); Hematocrit 38.5 % (36-46); Hemoglobin 12.7 g/dL (12.0-16.0); Lymphocytes Absolute Auto 1400 /uL (1100-4500); Lymphocytes Percent Auto 8.6 % (25-40); Mean Corpuscular HGB Conc 33.1 % (30-36); Mean Corpuscular Hemoglobin 28.8 PG (26-34); Mean Corpuscular Volume 87.1 fL (80-100); Monocytes Absolute Auto 500 /uL (0-900); Monocytes Percent Auto 2.9 % (3-14); Neutrophils Absolute Auto 14100 /uL (1500-7000); Platelet Count 214 X10^3/uL (150-400); Red Blood Cell Count 4.42 X10^6/uL (4.0-5.2); Red Cell Distribution Width 14.6 % (11.6-14.8)
[2022-03-23 04:50] LABS: BUN Creatinine Ratio 15.3 (6-22); Blood Urea Nitrogen 9 mg/dL (7-17); Calcium 8.7 mg/dL (8.4-10.2); Carbon Dioxide 27 mmol/L (22-32); Chloride 101 mmol/L (98-107); Estimated Glomerular Filt Rate > 60 mL/min (>60); Glucose 263 mg/dL (70-100); HEMOLYSIS < 15 (0-50); Potassium 4.4 mmol/L (3.4-5.1); Sodium 137 mmol/L (137-145)
[2022-03-23] MEDS: OSELTAMIVIR 75 MG CAPSULE PO ×2 (09:31→20:51)
[2022-03-23] MEDS: predniSONE 20 MG TABLET 60 MG PO (09:31)
[2022-03-23] MEDS: ACETAMINOPHEN 325 MG TABLET 650 MG PO ×2 (09:31→17:37)
[2022-03-23] MEDS: DOXYCYCLINE HYCLATE 100 MG TABLET PO ×2 (09:31→20:51)
[2022-03-23] MEDS: CEFDINIR 300 MG CAPSULE PO ×2 (09:31→20:51)
[2022-03-23] MEDS: ENOXAPARIN 40 MG/0.4 ML SYRINGE SUBCUT ×2 (09:34→20:50)
[2022-03-23] MEDS: SODIUM CHLORIDE 0.9% FLUSH 10 ML IV ×2 (09:35→20:52)
[2022-03-23] MEDS: PANTOPRAZOLE DR 20 MG TABLET PO (09:45)
[2022-03-23] MEDS: BUDESONIDE 0.5 MG/2 ML NEB INH ×2 (09:53→21:28)
[2022-03-23 11:15] LABS: Hemoglobin A1C% w Est Avg Glu 6.5 % (4.0-6.0)
[2022-03-23] MEDS: LIDOCAINE PATCH 1 EACH ADH..PATCH TOP ×2 (13:23→20:51)
[2022-03-23] MEDS: guaiFENesin ER 600 MG TAB 1200 MG PO ×2 (13:24→20:51)
[2022-03-23] MEDS: INSULIN LISPRO 100 UNIT/ML 3ML VIAL SUBCUT ×3 (13:31→22:17)
--- NOTE | 2022-03-23 13:36 | CM.DANOTE ---
DCP Assessment: Payor confirmed: [employer] PCP confirmed: Mona Sears Pt is a 61 y.o. F who presented to the ER via airlift from [facility]. Pt has a history of asthma. Pt found to have pneumonia and positive for flu. Pt brought up to the floor for further management and evaluation of her care. DCP met with pt this morning to discuss discharge needs. Pt daughter at the bedside. DCP introduced herself and role. Pt lives with her granddaughter on [facility], in a double story house. Pt is independent at baseline. Denies DME and still drives POV. Pt daughter to assist the patient back home upon discharge. Pt daughter states that if she got discharged over the weekend, they would stay in a hotel in [place] until Saturday in case patient needs more medical care. Pt daughter wants to see pt stabilize independently before discharging. DCP reassured them that we would not discharge pt until she is medically stable to go home. Pt states, I like staying here at the hospital because I feel safe hooked up to all the monitors. Pt denies any discharge resources at this time. [place] pass would be needed upon discharge. Instructed to contact DCP for any questions. DCP to continue to follow. Pt and pt daughter thankful for discussion. P: Pt to begin steroid therapy. Anticipate discharge home once medically stable via daughter POV. Sienna Green RN/THEA Discharge Planning/Care Management CM Discharge Assessment Start: 03/23/22 08:17 Freq: Status: Active Protocol: Document 03/23/22 13:35 ADAN (Rec: 03/23/22 13:36 ADAN [id number]) Discharge Planning Assessment Assigned Supervisor Drying Sienna Green RN/THEA Advance Directives? No Advance Directives on File No History Provided By Patient,Family Member Prior Living Arrangements House Household Members family Comment Granddaughter Type of transporation used prior to Drives own vehicle admit Independent with ADL's Yes Is patient alert and oriented? Yes Discharge Plan Home Transportation Arrangement Daughter POV Referrals Initiated None needed Additional Comment At this time. Review Status In Process Please Provide Date Initial DC 03/23/22 Assessment Was Performed Next Review Type Continued Stay Review
--- NOTE | 2022-03-23 16:46 | P.PN_ITS ---
Subjective Subjective Interval history: 61-year-old female w/asthma admitted w/Influenza A and acute hypoxic resp failure. There was also concern for a potential mass/masslike consolidation in REUBEN. Pt reports she is feeling better today. She is less dyspneic. States she is less SOB overall. Still requiring 2lpm to keep sats at 91%. Does feel hungry today. Exam Vital Signs (past 8 hours): - 03/23/22 09:54 03/23/22 12:00 03/23/22 16:00 Temperature 97.0 F L 96.9 F L Pulse Rate 83 81 80 Respiratory Rate 16 20 18 Blood Pressure 134/92 H 139/78 Pulse Oximetry 95 94 96 Oxygen Flow Rate 2 3 Oxygen Delivery Method Nasal Cannula Oxygen Flow Rate 3 Narrative Exam Narrative: GEN: Very pleasant middle-aged female Alert and oriented x 3, NAD HEENT:NC, Face symmetric CHEST: Mildly dyspneic with increased work of breathing Respiratory excursions symmetric, diffusely diminished with coarse breath sounds bilaterally CV: RRR, no M/R/G ABD: Soft, obese, NT/ND, BT present in all 4 quadrants, body habitus limits exam EXTR: warm, well perfused, no C/C/E SKIN: warm and dry, no rash NEURO: Alert and oriented x 3, nonfocal Objective Labs Result Diagrams: 03/23/22 03:17 03/23/22 03:17 Labs: Laboratory Results - last 24 hr 03/23/22 03/23/22 03/23/22 03:17 03:17 03:17 WBC 16.0 H RBC 4.42 Hgb 12.7 Hct 38.5 MCV 87.1 MCH 28.8 MCHC 33.1 RDW 14.6 Plt Count 214 Neut % (Auto) 88.0 H Lymph % (Auto) 8.6 L [place] % (Auto) 2.9 L Eos % (Auto) 0.0 L Baso % (Auto) 0.5 Neut # (Auto) 75183 H Lymph # (Auto) 1400 [place] # (Auto) 500 Eos # (Auto) 0 Baso # (Auto) 100 Sodium 137 Potassium 4.4 Chloride 101 Carbon Dioxide 27 BUN 9 Creatinine 0.59 Estimated GFR > 60 BUN/Creatinine Ratio 15.3 Glucose 263 H D Hemoglobin A1c 6.5 H Calcium 8.7 PFSH Medical History Abnormal Pap smear of cervix Acute meniscal tear of left knee Acute pain of left knee Breast cancer screening Candidal skin infection Cataracts, bilateral (~2011) MORIS I (cervical intraepithelial neoplasia I) MORIS II (cervical intraepithelial neoplasia II) Dysplasia of cervix, low grade (MORIS 1) Elevated ALT measurement Encounter for surveillance of abnormal nevi H/O vaginal delivery Hearing loss Pain and swelling of left knee Pap smear of cervix with ASCUS, cannot exclude HGSIL Rash of face Rosacea, unspecified Screening for cervical cancer Screening, lipid Skin cancer screening Tinnitus of left ear Urinary frequency Vaginal discharge Weight gain Well woman exam Surgical History Anesthesia History of cholecystectomy (~2009) Social History household members: family Smoking Status: Never smoker alcohol intake: never Assessment & Plan Assessment & Plan narrative: 1. Acute hypoxic respiratory failure Etiology is likely influenza A an underlying asthma. Continue Tamiflu, empiric antibiotics for possible superimposed bacterial pneumonia (cefdinir and doxycycline). She is using spirometry and is not quite able to get to a 1000 cc yet. 2. Influenza a Continue Tamiflu and respiratory precautions 3. Asthma exacerbation Given how diminished her breath sounds are and for significant wheezing, will broaden back to IV Solu-Medrol. Her IV status is a bit tenuous. If she loses her IV access, will resume prednisone. She is receiving budesonide as well. She was prescribed Flovent on an outpatient basis but has not been using it regularly d/t symptoms being well controlled at baseline. 4. LLL masslike appearance w/mediastinal lymphadenopathy Could be d/t pneumonia vs underlying malignancy. She is a nonsmoker. Will need f/u CT chest in 2 months to ensure resolution. This recommendation was discussed with the patient and placed in her discharge orders 5. Leukocytosis White blood cell count is up to 16.0 today, likely increased secondary to steroids. Will follow. 6. Hyperglycemia May be steroid induced but blood sugar on this morning's labs was 263. Will place on fingerstick/sliding scale and check a hemoglobin A1c 7. Transaminitis AST is 45, ALT 71. Incidentally, they were mildly elevated back in November as well. Given her elevated BMI, steatosis is certainly a possibility. Will obtain hepatitis panel. Consider outpatient imaging 8. Class 3 obesity BMI is 46.6. Patient would greatly benefit from weight reduction. Code status Full Prophylaxis On Lovenox Disposition Pending Time Spent With Patient Critical Care time: I spent a total of [] minutes of critical care time on this patient's care today; this time is exclusive of procedural time. Quality VTE Deep Vein Thrombosis/Pulmonary Embolism Present on Admission: No
[2022-03-23] MEDS: OXYCODONE IR 5 MG TABLET PO (20:51)
[2022-03-24] VITALS (10 sets, daily range): BP systolic 118–128; BP diastolic 68–81; PULSE 19–77; RESP 16–20; TEMP 35.9–36.6; O2SAT 91–98
[2022-03-24 05:25] LABS: Add Manual Diff / Slide Review NO; Basophils Absolute Auto 100 /uL (0-100); Basophils Percent Auto 0.3 % (0-2); Eosinophils Absolute Auto 0 /uL (0-450); Hematocrit 36.4 % (36-46); Hemoglobin 12.3 g/dL (12.0-16.0); Lymphocytes Absolute Auto 1400 /uL (1100-4500); Mean Corpuscular HGB Conc 33.8 % (30-36); Mean Corpuscular Hemoglobin 29.4 PG (26-34); Mean Corpuscular Volume 86.9 fL (80-100); Monocytes Absolute Auto 700 /uL (0-900); Monocytes Percent Auto 4.4 % (3-14); Neutrophils Absolute Auto 14800 /uL (1500-7000); Neutrophils Percent Auto 87.3 % (50-75); Platelet Count 246 X10^3/uL (150-400); Red Blood Cell Count 4.18 X10^6/uL (4.0-5.2); Red Cell Distribution Width 14.4 % (11.6-14.8)
[2022-03-24 05:33] LABS: BUN Creatinine Ratio 26.3 (6-22); Blood Urea Nitrogen 15 mg/dL (7-17); Calcium 8.5 mg/dL (8.4-10.2); Carbon Dioxide 28 mmol/L (22-32); Chloride 102 mmol/L (98-107); Estimated Glomerular Filt Rate > 60 mL/min (>60); Glucose 245 mg/dL (70-100); HEMOLYSIS < 15 (0-50); Potassium 4.8 mmol/L (3.4-5.1); Sodium 136 mmol/L (137-145)
--- NOTE | 2022-03-24 06:39 | PC.NURSE ---
[employer] Note-Patient remains on 2L NC while sleeping, SpO2 89%, RR 20s, lung sounds diminished with occasional faint exp wheeze posteriorly. Lidocaine patch, ice, oxycodone given for left neck/shoulder pain not relieved by Tylenol. VSS.
[2022-03-24] MEDS: PANTOPRAZOLE DR 20 MG TABLET PO (07:47)
[2022-03-24] MEDS: BUDESONIDE 0.5 MG/2 ML NEB INH ×2 (08:25→20:51)
[2022-03-24] MEDS: INSULIN LISPRO 100 UNIT/ML 3ML VIAL SUBCUT ×4 (09:02→21:50)
[2022-03-24] MEDS: ENOXAPARIN 40 MG/0.4 ML SYRINGE SUBCUT ×2 (09:07→21:50)
[2022-03-24] MEDS: guaiFENesin ER 600 MG TAB 1200 MG PO ×2 (09:08→21:50)
[2022-03-24] MEDS: DOXYCYCLINE HYCLATE 100 MG TABLET PO ×2 (09:08→21:50)
[2022-03-24] MEDS: CEFDINIR 300 MG CAPSULE PO ×2 (09:13→21:50)
[2022-03-24] MEDS: OSELTAMIVIR 75 MG CAPSULE PO ×2 (09:14→21:50)
[2022-03-24] MEDS: SODIUM CHLORIDE 0.9% FLUSH 10 ML IV ×2 (09:14→21:50)
--- NOTE | 2022-03-24 16:48 | PM.PN.1 ---
Subjective Subjective Date Patient Seen: 03/24/22 Interval history: 61-year-old female w/asthma admitted w/Influenza A and acute hypoxic resp failure. There was also concern for a potential mass/masslike consolidation in REUBEN.? Patient notes improvement in her breathing since yesterday. O2 sats on room air are 94% but dropped to 88% and patient became tachypneic with walking in room. Blood sugar this a.m. of 260 due to steroids. Patient also complains of persistent spasm pain in the left neck area with some response to oxycodone. It has been present for the last several days. No radiation or numbness in the arm. Exam Vital Signs (past 8 hours): - 03/24/22 12:22 03/24/22 16:27 Temperature 97.8 F 98 F Pulse Rate 70 68 Respiratory Rate 16 17 Blood Pressure 118/73 120/68 Pulse Oximetry 97 98 Oxygen Flow Rate 0 0 Fraction of Inspired Oxygen 24 SaO2/FiO2 Ratio 404 Oxygen Delivery Method Nasal Cannula Oxygen Flow Rate 0 Narrative Exam Narrative: General: Alert and pleasant female sitting in chair no distress Lungs: Clear to auscultation Heart: Regular rhythm Extremities: No edema Objective Labs Result Diagrams: 03/24/22 04:40 03/24/22 04:40 Labs: Laboratory Results - last 24 hr 03/24/22 03/24/22 04:40 04:40 WBC 17.0 H RBC 4.18 Hgb 12.3 Hct 36.4 MCV 86.9 MCH 29.4 MCHC 33.8 RDW 14.4 Plt Count 246 Neut % (Auto) 87.3 H Lymph % (Auto) 8.0 L [place] % (Auto) 4.4 Eos % (Auto) 0.0 L Baso % (Auto) 0.3 Neut # (Auto) 31694 H Lymph # (Auto) 1400 [place] # (Auto) 700 Eos # (Auto) 0 Baso # (Auto) 100 Sodium 136 L Potassium 4.8 Chloride 102 Carbon Dioxide 28 BUN 15 Creatinine 0.57 Estimated GFR > 60 BUN/Creatinine Ratio 26.3 H Glucose 245 H Calcium 8.5 PFSH Medical History Abnormal Pap smear of cervix Acute meniscal tear of left knee Acute pain of left knee Breast cancer screening Candidal skin infection Cataracts, bilateral (~2011) MORIS I (cervical intraepithelial neoplasia I) MORIS II (cervical intraepithelial neoplasia II) Dysplasia of cervix, low grade (MORIS 1) Elevated ALT measurement Encounter for surveillance of abnormal nevi H/O vaginal delivery Hearing loss Pain and swelling of left knee Pap smear of cervix with ASCUS, cannot exclude HGSIL Rash of face Rosacea, unspecified Screening for cervical cancer Screening, lipid Skin cancer screening Tinnitus of left ear Urinary frequency Vaginal discharge Weight gain Well woman exam Surgical History Anesthesia History of cholecystectomy (~2009) Social History household members: family Smoking Status: Never smoker alcohol intake: never Assessment & Plan Assessment & Plan narrative: 1. Acute hypoxic respiratory failure -etiology due to influenza a and asthma and superimposed bacterial pneumonia -CTA showed left upper lobe mass versus pneumonia, mediastinal adenopathy, enlarged left hilar lymph node -continue supplemental O2 as needed and treat underlying acute causes 2. Influenza A with possible superimposed bacterial pneumonia -Continue Tamiflu and respiratory precautions -continue cefdinir and doxycycline 3. Asthma exacerbation Continue nebulizers and steroid -discontinue Solu-Medrol 40 mg Q 8 hours due to hyperglycemia -prednisone 40 mg q.d. 4. Left upper lobe possible mass with mediastinal lymphadenopathy and in-laws she had a left hilar lymph node -mask could be pneumonia versus malignancy, enlarged lymph nodes could be reactive, patient is nonsmoker -recommend follow-up CT chest in 2 months to ensure resolution -recommendation was discussed with the patient and placed in her discharge orders 5. Steroid induced hyperglycemia -patient with history prediabetes, her A1c is 6.5 suggestive of type 2 diabetes -discussed glucose and A1c results with patient -continue insulin sliding scale while patient in hospital 6. Transaminitis Patient with history of elevated LFTs likely fatty liver Hepatitis panel was ordered 7. Severe obesity, BMI > 40 -contributing to respiratory issues and diabetes 8. Cervicalgia -continue lidocaine patch and oxycodone as needed -added cyclobenzaprine as needed Patient with overall clinical improvement and hope can discharge tomorrow, Saturday. Time Spent With Patient Critical Care time: I spent a total of [] minutes of critical care time on this patient's care today; this time is exclusive of procedural time. Quality VTE Deep Vein Thrombosis/Pulmonary Embolism Present on Admission: No
[2022-03-24] MEDS: CYCLOBENZAPRINE 10 MG TABLET PO (16:55)
--- NOTE | 2022-03-24 18:55 | PC.NURSE ---
Initially anxious Pt has done well as day has progressed. [place] ready to d/c tomorrow. Trying muscle relaxant vs lidocaine
[2022-03-24] MEDS: OXYCODONE IR 5 MG TABLET PO (21:50)
[2022-03-25] VITALS: BP 115/58; PULSE 67; RESP 21; TEMP 36.1; O2SAT 91; O2SAT 92
[2022-03-25 04:00] VITALS: BP 148/85; PULSE 81; RESP 23; TEMP 36.1; O2SAT 92; O2SAT 93
[2022-03-25 08:19] VITALS: BP 130/70; PULSE 80; RESP 18; TEMP 36.1; O2SAT 95
[2022-03-25 08:26] VITALS: PULSE 71; RESP 16; O2SAT 93
[2022-03-25] MEDS: BUDESONIDE 0.5 MG/2 ML NEB INH (08:26)
[2022-03-25 09:00] VITALS: O2SAT 94
[2022-03-25] MEDS: CEFDINIR 300 MG CAPSULE PO (09:46)
[2022-03-25] MEDS: predniSONE 20 MG TABLET 40 MG PO (09:46)
[2022-03-25] MEDS: DOXYCYCLINE HYCLATE 100 MG TABLET PO (09:47)
[2022-03-25] MEDS: guaiFENesin ER 600 MG TAB 1200 MG PO (09:47)
[2022-03-25] MEDS: ENOXAPARIN 40 MG/0.4 ML SYRINGE SUBCUT (09:47)
[2022-03-25] MEDS: OSELTAMIVIR 75 MG CAPSULE PO (09:48)
[2022-03-25] MEDS: CYCLOBENZAPRINE 10 MG TABLET PO (10:01)
--- NOTE | 2022-03-25 10:08 | PC.NURSE ---
alert and oriented visiting with drt, Dr. Billingsley here to see pt. pt has been up in chair loose prod cough noted intermittenly. denies sob Ra 94%
--- NOTE | 2022-03-25 10:14 | PM.DS.1 ---
History of Present Illness History of Present Illness Date Patient Seen: 03/25/22 Time Patient Seen: 10:14 Chief complaint: Pneumonia Narrative: Per admitting provider, History obtained from ER note, patient, daughter at bedside: 61-year-old female with history of asthma on albuterol inhaler patient did recently restart her fluticasone inhaler. Patient states she is felt ill for about 11 days, she started with cough, chest congestion, denies any fevers, no nasal congestion. She states productive sputum that has been thin, clear yellow in coloration, she is had sort of an epigastric chest discomfort that started overnight as well as some left-sided muscle aches that she describes being in her left arm and neck. Patient states she did not really have myalgias elsewhere. She feels short of breath. Patient denies any nausea or vomiting. She denies any diarrhea or constipation. No black or bloody stools. No dysuria urgency or frequency. No new swelling in her extremities. She states she is been drinking plenty of fluids. She denies other medical history, she states her inhalers are her only medications and she just restarted the fluticasone. She her granddaughter has had a recent upper respiratory infection at the same time. She denies tobacco use, no alcohol, no illicit. She lives on [facility] and saw Dr. Jeter in the office today had a chest x-ray and was sent over via airlift for tachycardia, tachypnea and O2 sat at the 90-91% range. She did have a DuoNeb she states it was not very helpful. She has not had any other interventions prior to arrival. Patient was transported via Air lift, they noted slight tachycardia 100-107 range, O2 was 90-91% on room air and was placed on 2 L brought her to 96%. When I saw the patient she is already on the medical floor, does seem to be comfortable after breathing treatments and steroids given in the ER. Patient and daughter able to confirm most of the details mentioned above. Patient does not look comfortable with I will distress and using accessory muscles with exertion. She does not have any other medical problems other than using inhalers. 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 Usually active at baseline. Discharge Providers Provider Date of admission: 03/22/22 17:22 Discharge Date: 03/25/22 Primary care physician: Mona Sears PA-C Consults: 03/22/22 12:07 Consult to [facility] - Materials Assistant Stat Comment: Discharge provider: Solo Negron DO Summary Hospital Course Discharge Diagnosis: 1.? Acute hypoxic respiratory failure 2.? Influenza A with possible superimposed bacterial pneumonia 3. Asthma exacerbation 4. Left upper lobe possible mass with mediastinal lymphadenopathy and in-laws she had a left hilar lymph node 5. Steroid induced hyperglycemia 6.? Transaminitis 7.? Severe obesity, BMI > 40 8. Cervicalgia Hospital Course: This is a 61-year-old female with a past medical history of obesity, and asthma who was admitted with acute respiratory failure secondary to a combination of influenza a with superimposed bacterial pneumonia as well as an asthma exacerbation. She improved with antibiotic therapy and steroids with resolution of her hypoxemic respiratory failure. When she was no longer requiring oxygen, even with ambulation, the patient was discharged home. She will continue on another 3 days of antibiotic therapy for pneumonia as well as another 3 days of steroids for her asthma exacerbation. On CT imaging she was noted to have a possible left upper lobe mass with mediastinal lymphadenopathy and a hilar lymph node as well. This may be due to malignancy or possibly reactive in the setting of pneumonia, repeat CT scan in a couple of months is recommended to ensure resolution. Patient's obesity contributed to increased medical complexity and contributed to increased duration of stay. Currently only hepatitis panel is pending at the time of discharge which was sent for mildly elevated LFTs. These are recommended to be repeated with PCP and continued evaluation if deemed appropriate at that time. Time Spent with Patient Time spent: Greater than 30 minutes Exam Vital Signs (past 8 hours): - 03/25/22 04:00 03/25/22 04:00 03/25/22 08:19 Temperature 96.9 F L 97 F L Pulse Rate 81 80 Respiratory Rate 23 18 Blood Pressure 148/85 H 130/70 Pulse Oximetry 93 92 95 Oxygen Delivery Method Room Air Oxygen Flow Rate 0 03/25/22 08:26 Temperature Pulse Rate 71 Respiratory Rate 16 Blood Pressure Pulse Oximetry 93 Oxygen Delivery Method Oxygen Flow Rate Fraction of Inspired Oxygen 21 SaO2/FiO2 Ratio 438 Oxygen Delivery Method Room Air Oxygen Flow Rate 0 Narrative Exam Narrative: General: Alert and pleasant female sitting in chair no distress Lungs: Clear to auscultation Heart: Regular rhythm Extremities: No edema Objective Labs Result Diagrams: 03/24/22 04:40 03/24/22 04:40 [facility] Medical History Abnormal Pap smear of cervix Acute meniscal tear of left knee Acute pain of left knee Breast cancer screening Candidal skin infection Cataracts, bilateral (~2011) MORIS I (cervical intraepithelial neoplasia I) MORIS II (cervical intraepithelial neoplasia II) Dysplasia of cervix, low grade (MORIS 1) Elevated ALT measurement Encounter for surveillance of abnormal nevi H/O vaginal delivery Hearing loss Pain and swelling of left knee Pap smear of cervix with ASCUS, cannot exclude HGSIL Rash of face Rosacea, unspecified Screening for cervical cancer Screening, lipid Skin cancer screening Tinnitus of left ear Urinary frequency Vaginal discharge Weight gain Well woman exam Surgical History Anesthesia History of cholecystectomy (~2009) Social History household members: family Smoking Status: Never smoker alcohol intake: never Discharge Plan Discharge Plan Patient Disposition: Home Provider Discharge Comment: You were admitted to the hospital with trouble breathing due to asthma exacerbation, influenza A infection with likely bacterial pneumonia as well. You will need a follow-up Chest CT with contrast in 2 months due to abnormalities seen in your left lung (could simply be due to pneumonia but could also be lung mass that needs further evaluation) and this is to be done via your PCP. [email or web address] in [facility]. Discharge orders & Medications Prescriptions: New cyclobenzaprine 10 mg Tablet 10 mg PO TID PRN (Reason: muscle spasm) 7 Days Qty: 20 0RF cefdinir 300 mg Capsule 300 mg PO BID 3 Days Qty: 6 0RF doxycycline hyclate 100 mg Tablet 100 mg PO BID 3 Days Qty: 6 0RF guaifenesin [Mucus Relief ER] 600 mg Tablet Extended Release 12hr 1,200 mg PO BID 7 Days Qty: 28 0RF prednisone 20 mg Tablet 40 mg PO DAILY 3 Days Qty: 6 0RF oxycodone 5 mg Tablet 5 mg PO Q4HR PRN (Reason: Pain, Moderate (4-6)) 7 Days Qty: 20 0RF Continued fluticasone propionate 110 mcg/actuation HFA aerosol inhaler 2 puff inhalation BID Qty: 12 1RF Rx Instructions: administer with spacer albuterol sulfate 90 mcg/actuation aerosol powdr breath activated 1 inh INHALATION Q4-6H PRN (Reason: shortness of breath or wheezing) 30 Days Qty: 1 1RF Follow up/Referrals: Mona Sears PA-C [Primary Care Provider] - Diet/Activity/Treatments Diet: Diet as Tolerated Activity: As tolerated Visit Report/Discharge Packet Instructions: DI for Pneumonia -- Adult, DI for Influenza -- Adult Stand Alone Forms: Patient Portal/API Discharge Data Primary Care Provider: Mona Sears Quality VTE Deep Vein Thrombosis/Pulmonary Embolism Present on Admission: No
[2022-03-28 17:01] LABS: HBsAg Screen Negative (Negative); Hepatitis A Antibody IgM Negative (Negative); Hepatitis B Core Antibody IgM Negative (Negative); Hepatitis C Antibody >11.0 s/co ratio (0.0-0.9); Hepatitis C Quant HCV Not Detected IU/mL (.)
== END 2022-03-25 12:05 | disposition home or self-care (01) | DRG 139 ==
LOC: ED 11:54 → AC 17:26
PROVIDERS: Family Medicine; Admitting Provider Internal Medicine; Emergency Provider Emergency Medicine; PCP Physician Assistant; Referring Provider Emergency Medicine; Visit Provider Internal Medicine
DX: J10.08 Influenza due to other identified influenza virus with other specified pneumonia (principal); J96.01 Acute respiratory failure with hypoxia; J15.9 Unspecified bacterial pneumonia; J45.901 Unspecified asthma with (acute) exacerbation; E66.01 Morbid (severe) obesity due to excess calories; M54.2 Cervicalgia; R73.9 Hyperglycemia, unspecified; T38.0X5A Adverse effect of glucocorticoids and synthetic analogues, initial encounter; Z68.42 Body mass index [BMI] 45.0-49.9, adult; Z20.822 Contact with and (suspected) exposure to COVID-19
CPT/HCPCS: 0241U; 36415; 71275; 80048; 80053; 80074; 82550; 82962; 83036; 83605; 83690; 83880; 84484; 85025; 85379; 87040; 93005; 94640; 94760; 96365; 96375; 99285; J0696; J1650; J1815; J2270; J2920; J2930; J7613; Q9967

== ENCOUNTER 2022-06-18 06:52 | Day surgery (SDC) | payer OTHER, MEDICAID, SELFPAY ==
[2022-03-22 22:30] VITALS: BMI 46.5
[2022-06-11 13:29] VITALS: BMI 46.0
[2022-06-18] VITALS (7 sets, daily range): BP systolic 124–141; BP diastolic 70–92; PULSE 70–96; RESP 12–21; TEMP 35.9–36.8; O2SAT 92–97; BMI 46.0
--- NOTE | 2022-06-18 | PATH_ITS ---
[facility] Accession Number: [id number] No. of containers..03 Tissue . 01 Material submitted: . PART A: cervix - EXTERNAL LEEP SUTURE AT 12 O CLOCK PART B: cervix - INTERNAL LEEP PART C: endocervix - ENDOCERVICAL CURRETAGE . 01 Diagnosis: A. Cervix, External LEEP Suture At 12 o'clock: High-grade squamous intraepithelial lesion/MORIS-2 involves the 12 to 3 o'clock, 6 to 9 o'clock, and 9 to 12 o'clock quadrants. Low-grade squamous intraepithelial lesion/MORIS-1 involves the 12 to 3 o'clock, 3 to 6 o'clock, and 9 to 12 o'clock quadrants. High-grade squamous intraepithelial lesion/MORIS-2 appears to involve the orange-inked endocervical margin in the 6 to 9 o'clock and 9 to 12 o'clock quadrants. Low-grade squamous intraepithelial/MORIS-1 appears to involve the orange-inked endocervical margin in the 12 to 3 o'clock quadrant. No invasive tumor identified. . B. Cervix, Internal LEEP: Endocervical tissue with focal changes suggestive of previous instrumentation. Negative for glandular dysplasia or malignancy. . C. Endocervical Curettage: Scant glandular elements and small fragments of endocervical tissue; negative for glandular dysplasia or malignancy. Hyperkeratotic debris, cannot completely exclude HPV-like changes. Strips of superficial atypical squamous epithelium, favor a reactive etiology; insufficient atypical tissue volume for ancillary studies. Please see comment. [facility] 06/22/2022 1229 Local . 01 Comment: Part C: Abundant keratinous debris is present, and could indicate possible HPV-like tissue changes. Please correlate with clinical and imaging findings. . The biopsy results correlate with Pap smear [id number]. . 01 Electronically signed: . Sofia Palumbo MD, Pathologist NPI- [id number] . 01 Gross description: . The specimen is received in formalin in three parts, all labeled with the patient's name and . . A. Designated external LEEP consists of an oriented excision of cervix with a suture designating 12 o'clock per the requisition and measuring 1.7 cm from 1 to 6 o'clock, 1.8 cm from 3 to 9 o'clock, and is excised to a depth of 0.3 cm. The ectocervix is ruelas and finely granular with a slit-like cervical os measuring 0.7 cm in diameter. The endocervical margin is inked orange while the remaining stromal margins are inked blue. The specimen is radially sectioned and submitted entirely as follows: A1: 12 to 3 o'clock. A2: 3 to 6 o'clock. A3: 6 to 9 o'clock. A4: 9 to 12 o'clock. B. Designated internal LEEP consists of an unoriented fragment of cervix measuring 1.5 x 0.9 x 0.3 cm. No ectocervix is grossly identified. The concave surface is inked black while the convex surface is inked blue. The specimen is serially sectioned and submitted in cassettes B1-B2. C. Designated ECC consists of multiple red-brown soft tissue fragments aggregating to 2.5 x 0.9 x 0.1 cm. The specimen is filtered into a biopsy bag and submitted entirely in cassette C1. ([id number]) /MRV 06/20/[address] [place] [address] . 01 Pathologist provided ICD-10: N87.1, N87.0 . 01 CPT . 987747, 086501, 119059 Specimen Comment: A courtesy copy of this report has been sent to [phone] Performed at: 01 [facility] [address] [place] [address], [place], [place] [id number] MD Balwinder Escobedo MD Phone: [phone]
--- NOTE | 2022-06-18 07:33 | PM.PREOP ---
Pre-operative Note COVID-19 COVID-19 status: Not tested Criteria for continued procedure: Expected advancement of disease process Interval Note History & Physical reviewed/Exam performed by Physician: Yes Changes to H&P: No
--- NOTE | 2022-06-18 08:03 | SUR.OPER ---
Lithotomy on padded OR bed, head on pillow, arms secured on padded arm boards at <90 degrees abduction. Legs secured in padded yellow fins stirrups.
[2022-06-18] MEDS: POTASSIUM IODIDE/IODINE 473 ML SOLUTION TOP (08:17)
[2022-06-18] MEDS: BUPIVACAINE 0.25% (PF) 30 ML, EPINEPHrine 0.15 MG INJ (08:18)
--- NOTE | 2022-06-18 08:20 | PM.OP.1 ---
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 No non Lugal staining areas seen. Closure Type: not applicable Specimen(s): other (External biopsy with 12:00 p.m. marked with suture, internal biopsy, and ECC) Estimated Blood Loss (mL): 5 Blood products transfused: none Procedure in detail: Patient was brought to the operating room where she underwent general anesthesia and she was placed in low [facility] stirps. The patient was prepped and draped in the usual sterile fashion. No vaginal prep was performed. A check system was reviewed with the staff in the room prior to beginning the case. N95 masks in use by all present in the room. A coated speculum was placed in the vagina with suction in place. The cervix was stained with Lugol's. A tenaculum was placed on the anterior lip of the cervix. Approximately 20 cc of bupivacaine with epinephrine were placed into the cervix with multiple injection sites. The loop set at 30 w of cutting was used to remove the entire squamocolumnar junction in 1 piece. 12:00 p.m. was marked. A smaller loop was used to remove a section of the endocervical canal. ECC was performed. 3 specimens sent to pathology. The bleeding was controlled with ball cautery set at 40 w. Monsel's was placed to help prevent bleeding. Patient went to recovery room in good condition. Counts of instruments and sponges were correct. Complications: none Post-operative Condition: stable Disposition: same day surgery Plan for aftercare: Treatment and follow-up based on biopsy results.
[2022-06-18] MEDS: LACTATED RINGERS 1,000 ML 100 ML IV (08:33)
[2022-06-18] MEDS: ACETAMINOPHEN 325 MG TABLET 975 MG PO (08:36)
== END 2022-06-18 09:55 | disposition home or self-care (01) ==
PROVIDERS: PCP Physician Assistant; Referring Provider Specialist; Visit Provider Specialist
PROC: 0UBC7ZZ Excision of Cervix, Via Natural or Artificial Opening (ICD-10-PCS; CPT 57522; principal; 2022-06-18 07:45)
DX: N87.1 Moderate cervical dysplasia (principal)
CPT/HCPCS: 57522; J0171; J1100; J1885; J2250; J2405; J2704; J3010

== ENCOUNTER → 2023-02-08 11:32 | Outpatient (CLI) | payer OTHER, MEDICAID, SELFPAY ==
[2022-03-22 22:30] VITALS: BMI 46.5
== END ==
PROVIDERS: PCP Physician Assistant; Visit Provider Family Medicine
DX: R31.0 Gross hematuria (principal); N39.0 Urinary tract infection, site not specified; R74.01 Elevation of levels of liver transaminase levels
CPT/HCPCS: 81002

== ENCOUNTER → 2023-02-18 09:53 | Outpatient (CLI) | payer OTHER, MEDICAID, SELFPAY ==
[2022-03-22 22:30] VITALS: BMI 46.5
[2023-02-18 19:35] LABS: Alanine Aminotransferase 62 IU/L (<35); Albumin 3.9 g/dL (3.5-5.0); Albumin Globulin Ratio 1.3 (1.0-2.8); Alkaline Phosphatase 98 U/L (38-126); Aspartate Aminotransferase 47 IU/L (14-36); Bilirubin Total 0.5 mg/dL (0.2-1.3); Blood Urea Nitrogen 13 mg/dL (7-17); Calcium 8.8 mg/dL (8.4-10.2); Carbon Dioxide 30 mmol/L (22-32); Chloride 103 mmol/L (98-107); Cholesterol 208 mg/dL (140-199); Estimated Glomerular Filt Rate > 60 mL/min (>60); Globulin 3.1 g/dL (1.7-4.1); Glucose 124 mg/dL (80-110); HDL Cholesterol 56 mg/dL (40-60); HEMOLYSIS < 15 (0-50); Hemoglobin A1C% w Est Avg Glu 6.7 % (4.0-6.0); LDL Cholesterol Calculated 131 mg/dL (<100); Potassium 4.4 mmol/L (3.4-5.1); Sodium 139 mmol/L (137-145); Triglycerides 106 mg/dL (35-150)
[2023-02-18 19:36] LABS: Add Manual Diff / Slide Review NO; Basophils Absolute Auto 100 /uL (0-100); Basophils Percent Auto 1.4 % (0-2); Eosinophils Absolute Auto 200 /uL (0-450); Eosinophils Percent Auto 4.7 % (2-4); Hemoglobin 13.4 g/dL (12.0-16.0); Lymphocytes Absolute Auto 2200 /uL (1100-4500); Lymphocytes Percent Auto 40.7 % (25-40); Mean Corpuscular HGB Conc 33.4 % (30-36); Mean Corpuscular Hemoglobin 29.5 PG (26-34); Mean Corpuscular Volume 88.4 fL (80-100); Monocytes Absolute Auto 500 /uL (0-900); Monocytes Percent Auto 8.9 % (3-14); Neutrophils Absolute Auto 2400 /uL (1500-7000); Neutrophils Percent Auto 44.3 % (50-75); Platelet Count 223 X10^3/uL (150-400); Red Blood Cell Count 4.53 X10^6/uL (4.0-5.2); Red Cell Distribution Width 14.5 % (11.6-14.8); White Blood Cell Count 5.3 X10^3/uL (4.5-11.0)
[2023-02-18 19:40] LABS: Creatinine Urine Random 202.6 mg/dL
[2023-02-18 19:45] LABS: Microalbumi Creatinin Ratio Ur 4.4 ug/mg CR (<30); Microalbumin Urine Random 0.9 mg/dL (0-1.6)
[2023-02-18 19:59] LABS: TSH w/ Reflex to FT4 2.64 uIU/mL (0.47-4.68)
== END ==
PROVIDERS: PCP Family Medicine; Visit Provider Family Medicine
DX: E78.2 Mixed hyperlipidemia (principal); I10 Essential (primary) hypertension; Z68.42 Body mass index [BMI] 45.0-49.9, adult; R10.9 Unspecified abdominal pain; R31.0 Gross hematuria
CPT/HCPCS: 80053; 80061; 82043; 82570; 83036; 84443; 85025

== ENCOUNTER → 2024-05-13 09:56 | Outpatient (CLI) | payer BC, SELFPAY ==
[2022-03-22 22:30] VITALS: BMI 46.5
--- NOTE | 2024-05-13 09:59 | DI.CT.S_ITS ---
PROCEDURE: CT ABDOMEN PELVIS W CON INDICATIONS: Abdominal pain right lower quadrant subacute TECHNIQUE: After the administration of intravenous contrast, axial sections acquired from the lung bases to the pubic symphysis. Coronal and sagittal reformats were performed. For radiation dose reduction, the following was used: automated exposure control, adjustment of mA and/or kV according to patient size. COMPARISON: None. FINDINGS: Image quality: Diagnostic. Lower Chest: No significant findings. ABDOMEN: Liver: The liver is diffusely decreased in attenuation without focal mass lesion. Gallbladder: Cholecystectomy. No intra or extrahepatic bile duct dilation. Biliary ducts: No biliary dilation. Pancreas: No ductal dilation. Spleen: Size is within normal limits. Adrenal Glands: No adrenal nodules. Kidneys and Ureters: No hydronephrosis. No solid mass. No complex renal cystic lesion which requires follow up. Stomach and Bowel: Normal colonic caliber, without significant wall thickening. Multiple diverticula arise from the sigmoid colon without evidence of diverticulitis. Normal appendix identified. No evidence of appendicitis. Moderate fecal debris in the left colon and sigmoid. Peritoneum: No abnormal intraperitoneal fluid. No free air. Ventral Wall: No significant ventral hernia. Abdominal Nodes: No retroperitoneal or mesenteric adenopathy by size criteria. Vessels: Aorta and inferior vena cava are normal in size. PELVIS: Pelvic Organs: Unremarkable. Bladder: No bladder wall thickening, accounting for underdistention. Pelvic Nodes: No enlarged lymph nodes. Miscellaneous: No inguinal hernias are seen. Bones: No aggressive osseous abnormality. IMPRESSION: No acute CT findings in the abdomen and pelvis. Normal appendix. Moderate fecal debris in the left colon. Diverticulosis without diverticulitis. Approved by: Erasto Goldberg M.D. on 05/13/2024 at 16:01
[2024-05-13 10:32] LABS: Estimated Glomerular Filt Rate > 60 mL/min (>60)
== END ==
LOC: CT 09:58
PROVIDERS: Radiology Diagnostic Radiology; PCP Family Medicine; Referring Provider Family Medicine; Visit Provider Family Medicine
DX: D06.9 Carcinoma in situ of cervix, unspecified (principal); R10.31 Right lower quadrant pain; J45.909 Unspecified asthma, uncomplicated; Z90.49 Acquired absence of other specified parts of digestive tract
CPT/HCPCS: 36415; 74177; 82565; Q9967

== ENCOUNTER → 2024-06-05 09:13 | Outpatient (CLI) | payer BC, SELFPAY ==
[2022-03-22 22:30] VITALS: BMI 46.5
[2024-06-05 18:39] LABS: Creatinine Urine Random 182.91 mg/dL
[2024-06-05 18:47] LABS: Microalbumin Urine Random 0.7 mg/dL (0-1.6)
== END ==
PROVIDERS: PCP Family Medicine; Visit Provider Family Medicine
DX: E11.9 Type 2 diabetes mellitus without complications (principal); E78.2 Mixed hyperlipidemia; I10 Essential (primary) hypertension
CPT/HCPCS: 82043; 82570

== ENCOUNTER → 2024-06-09 11:13 | Outpatient (CLI) | payer BC, SELFPAY ==
[2022-03-22 22:30] VITALS: BMI 46.5
[2024-06-09 19:22] LABS: Add Manual Diff / Slide Review NO; Basophils Absolute Auto 100 /uL (0-100); Eosinophils Absolute Auto 200 /uL (0-450); Eosinophils Percent Auto 3.4 % (2-4); Hematocrit 40.6 % (36-46); Hemoglobin 13.4 g/dL (12.0-16.0); Lymphocytes Absolute Auto 1900 /uL (1100-4500); Lymphocytes Percent Auto 33.8 % (25-40); Mean Corpuscular Hemoglobin 29.1 PG (26-34); Monocytes Absolute Auto 500 /uL (0-900); Monocytes Percent Auto 9.4 % (3-14); Neutrophils Absolute Auto 3000 /uL (1500-7000); Neutrophils Percent Auto 52.4 % (50-75); Platelet Count 203 X10^3/uL (150-400); Red Blood Cell Count 4.61 X10^6/uL (4.0-5.2); Red Cell Distribution Width 14.8 % (11.6-14.8); White Blood Cell Count 5.7 X10^3/uL (4.5-11.0)
[2024-06-09 19:33] LABS: Alanine Aminotransferase 61 IU/L (<35); Albumin 4.2 g/dL (3.5-5.0); Albumin Globulin Ratio 1.4 (1.0-2.8); Alkaline Phosphatase 103 U/L (38-126); Aspartate Aminotransferase 55 IU/L (14-36); Bilirubin Total 0.5 mg/dL (0.2-1.3); Blood Urea Nitrogen 11 mg/dL (7-17); Calcium 9.1 mg/dL (8.4-10.2); Carbon Dioxide 26 mmol/L (22-32); Chloride 102 mmol/L (98-107); Cholesterol 225 mg/dL (140-199); Estimated Glomerular Filt Rate > 60 mL/min (>60); Globulin 2.9 g/dL (1.7-4.1); Glucose 122 mg/dL (80-110); HDL Cholesterol 53 mg/dL (40-60); HEMOLYSIS 25 (0-50); LDL Cholesterol Calculated 142 mg/dL (<100); Potassium 4.5 mmol/L (3.4-5.1); Sodium 137 mmol/L (137-145); Total Protein 7.1 g/dL (6.3-8.2); Triglycerides 150 mg/dL (35-150)
== END ==
PROVIDERS: PCP Family Medicine; Visit Provider Family Medicine
DX: E11.9 Type 2 diabetes mellitus without complications (principal); E78.2 Mixed hyperlipidemia; I10 Essential (primary) hypertension
CPT/HCPCS: 80053; 80061; 83036; 85025

== ENCOUNTER → 2025-03-03 09:31 | Outpatient (CLI) | payer BC, SELFPAY ==
[2022-03-22 22:30] VITALS: BMI 46.5
[2025-03-03 19:22] LABS: Add Manual Diff / Slide Review NO; Hematocrit 41.3 % (36-46); Hemoglobin 14.0 g/dL (12.0-16.0); Lymphocytes Absolute Auto 2000 /uL (1100-4500); Mean Corpuscular HGB Conc 33.9 % (30-36); Mean Corpuscular Hemoglobin 29.5 PG (26-34); Mean Corpuscular Volume 87.0 fL (80-100); Platelet Count 233 X10^3/uL (150-400)
[2025-03-03 19:25] LABS: Alanine Aminotransferase 53 IU/L (<35); Albumin 4.4 g/dL (3.5-5.0); Albumin Globulin Ratio 1.4 (1.0-2.8); Alkaline Phosphatase 96 U/L (38-126); Blood Urea Nitrogen 12 mg/dL (7-17); Calcium 9.3 mg/dL (8.4-10.2); Carbon Dioxide 27 mmol/L (22-32); Chloride 101 mmol/L (98-107); Cholesterol 202 mg/dL (140-199); Estimated Glomerular Filt Rate > 60 mL/min (>60); Globulin 3.1 g/dL (1.7-4.1); Glucose 102 mg/dL (70-99); HDL Cholesterol 56 mg/dL (40-60); HEMOLYSIS 22 (0-50); Potassium 4.2 mmol/L (3.4-5.1); Sodium 137 mmol/L (137-145); Total Protein 7.5 g/dL (6.3-8.2); Triglycerides 142 mg/dL (35-150)
[2025-03-03 19:58] LABS: Hemoglobin A1C% w Est Avg Glu 6.3 % (4.0-6.0)
== END ==
PROVIDERS: PCP Family Medicine; Visit Provider Family Medicine
DX: E78.2 Mixed hyperlipidemia (principal); I10 Essential (primary) hypertension; E11.9 Type 2 diabetes mellitus without complications
CPT/HCPCS: 80053; 80061; 82043; 82570; 83036; 85025